=== PATIENT | female | born 1945 | race Two or more races ===

== ENCOUNTER 2025-03-21 22:19 | Inpatient (IN) | payer OTHER ==
[~2025-03-21] VITALS: Ht 152.4 cm; Wt 95.1 kg
[~2025-03-21 22:19] MED LIST: CARV6.2517 PO; CARV6.2551 PO; FURO20TA4 PO; HYDR12.59 PO; HYDR25TA5 PO; INS7030I SC; LOSA-535 PO; PANC2400 PO; POTA1TAB4 PO; SIMV20TA20 PO
[2025-03-21 22:40] VITALS: PULSE 62; RESP 20; O2SAT 93
--- NOTE | 2025-03-21 22:42 | ECG ---
[facility] Test Date: 2025-03-21 Test Time: 22:23:29 Pat Name: MARICHUY SHEPARD Department: [facility] ED Patient ID: [facility]-[id number] Room: 0221T Gender: F Volunteer Firefighter: tatiana : 1945 Requested By: EMERGENCY EMERGENCY Order Number: [id number] Reading MD: Christopher Ewing Measurements Intervals [place] Rate: 66 P: 76 OK: 177 QRS: 58 QRSD: 163 T: 260 QT: 448 QTc: 470 Interpretive Statements Sinus rhythm Left bundle branch block Electronically Signed On 03-23-2025 15:27:08 PST by Christopher Ewing Please click the below link to view image of tracing.
--- NOTE | 2025-03-21 22:43 | ED.PDOC ---
History of Present Illness HPI Comments 79 y/o obese F is BIBA for c/c of constipation and nausea w/o vomiting. Significant history for CAD, DM, HTN, MO, pancreatitis, noncancerous, right ovarian mass, cholecystectomy, back surgery, and recent hospital admission in January, for abdominal pain. No endorsed abdominal pain, diarrhea, fever, chills, or further acute symptoms. On scene blood glucose of 192. Chief Complaint: Abdominal Pain Time Seen by MD: 22:30 Reviewed Notes: Nurses Notes, Water Resource Specialist Notes, Medications, Allergies Allergies: Coded Allergies: Propoxyphene (Verified Allergy, Unknown, 02/07/18) Home Meds Reported Medications Hydrochlorothiazide (Hydrochlorothiazide) 12.5 Mg Cap, 12.5 MG PO DAILY for 30 Days, MG 02/08/18 Carvedilol (Coreg) 6.25 Mg Tab, 1 TAB PO BID, #180 TAB 1 Refill 02/08/18 Simvastatin (Simvastatin) 20 Mg Tab, 20 MG PO DAILY for 30 Days 02/08/18 Losartan Potassium (Losartan Potassium) 100 Mg Tab, 100 MG PO DAILY for 30 Days, MG 02/08/18 Information Source: Patient, Emergency Med Personnel Mode of Arrival: EMS Severity: Moderate Timing: Hours Duration: Since onset Prehospital treatment: 12 Lead EKG, Accucheck (192), Director Of Global Sales Past Medical History PAST MEDICAL HISTORY: CAD, DM, HTN, MO Past Medical History (Other): Pancreatitis Surgical History: Cholecystectomy Surgical History (Other): back surgery BUSINESS INVESTOR History: Other (noncancerous, right ovarian mass) Family History Family History: Unknown Social History Smoker: Non-Smoker Alcohol: Denies ETOH Use Drugs: Denies Drug Use Lives In: Home All Other Systems: Reviewed and Negative (Comprehensive systems review obtained and negative except for what is stated in the HPI.) Physical Exam General Appearance: No Apparent Distress, Obese HEENT: Normal ENT Inspection, Pharynx Normal, TMs Normal Neck: Full Range of Motion, Non-Tender, Normal, Normal Inspection Respiratory: Chest Non-Tender, Lungs Clear, No Accessory Muscle Use, No Respiratory Distress, Normal Breath Sounds Cardiovascular: No Edema, No JVD, No Murmur, No Gallop, Normal Peripheral Pulses, Regular Rate/Rhythm Breast Exam: Deferred Gastrointestinal: Abnormal Bowel Sounds (decreased ), Distended, No Organomegaly, Non Tender, No Pulsatile Mass, Soft Genitalia: Deferred Pelvic: Deferred Rectal: Deferred Extremities: No calf tenderness, Normal capillary refill, Normal inspection, Normal range of motion, Non-tender, No pedal edema Musculoskeletal : Apperance: Normal Neurologic: Alert, marketing account executive II-XII nml as Tested, No Motor Deficits, Normal Affect, Normal Mood, No Sensory Deficits Cerebellar Function: Normal Reflexes: Normal Skin: Dry, Normal Color, Warm Lymphatic: No Adenopathy Was a procedure done? Was a procedure done?: No Differential Dx Considerations may include: constipation, gastritis, gastroenteritis, bowel obstruction, viral, colitis, diverticulitis, kidney stones, GI malignancy, metastasis, pancreatitis X-Ray, Labs, Meds, VS Vital Signs Date Time Temp Pulse Resp B/P (MAP) Pulse Ox O2 Delivery O2 Flow Rate FiO2 03/21/25 22:53 97.8 76 18 150/68 98 97.8 03/21/25 22:23 66 Lab Test 03/21/25 22:47 03/21/25 22:42 Range/Units White Blood Count 10.3 4.4-10.8 10^3/uL Red Blood Count 4.44 4.0-5.20 10^6/uL Hemoglobin 13.6 12.2-16.2 g/dL Hematocrit 39.6 36.0-46.0 % Mean Corpuscular Volume 89.1 80.0-100.0 fL Mean Corpuscular Hemoglobin 30.5 28.0-32.0 pg Mean Corpuscular Hemoglobin Concent 34.3 32.0-36.0 g/dL Red Cell Distribution Width 14.1 11.8-14.3 % Platelet Count 145 140-450 10^3/uL Mean Platelet Volume 8.1 6.9-10.8 fL Neutrophils (%) (Auto) 84.3 H 37.0-80.0 % Lymphocytes (%) (Auto) 11.1 10.0-50.0 % Monocytes (%) (Auto) 3.7 0.0-12.0 % Eosinophils (%) (Auto) 0.8 0.0-7.0 % Basophils (%) (Auto) 0.1 0.0-2.0 % Neutrophils # (Auto) 8.6 1.6-8.6 10 ^3/uL Lymphocytes # (Auto) 1.1 0.4-5.4 10 ^3/uL Monocytes # (Auto) 0.4 0-1.3 10 ^3/uL Eosinophils # (Auto) 0.1 0-0.8 10 ^3/uL Basophils # (Auto) 0 0-0.2 10 ^3/uL Nucleated Red Blood Cells 0.1 % Sodium Level 132 L 136-145 mmol/L Potassium Level 3.8 3.5-5.1 mmol/L Chloride Level 97 L 98-107 mmol/L Carbon Dioxide Level 27 20-31 mmol/L Anion Gap 8 5-15 Blood Urea Nitrogen 10 9-23 mg/dL Creatinine 1.32 H 0.550-1.02 mg/dL Glomerular Filtration Rate Calc 41 >90 mL/min BUN/Creatinine Ratio 7.6 L 10.0-20.0 Serum Glucose 160 H 74-106 mg/dL Calcium Level 9.5 8.7-10.4 mg/dL Lipase 26 12-53 U/L Lactic Acid Level Pending Current Medications Medications (Trade) Dose Ordered Sig/Oz Route Start Time Stop Time Status Last Admin Sodium Chloride 1,000 ml @ 75 mls/hr [id number] ONCE IV 03/21/25 22:45 03/22/25 12:04 03/21/25 23:58 Time of 1ST Reevaluation: 23:00 Reevaluation 1ST: Unchanged Patient Education/Counseling: Diagnosis, Treatment, Prognosis, Need For Follow Up Family Education/Counseling: No Family Present Comments This is a patient who has a history of a nonspecific ovarian mass which is being observed by her doctor. She also has coronary artery disease and vascular disease. Presents with the abdominal pain and distention. She does not have an acute abdomen she is alert and oriented. Her vital signs are within normal limit however her CAT scan shows free air and pneumatosis consistent with possible ischemic bowel and perforation. Her labs are unremarkable. I will add a lactic acid I will administer light stroke volume fluids I will start broad- spectrum antibiotics keep the patient NPO consult surgery and the patient will be admitted for further evaluation of this potentially lethal condition. However again, she is stable and showing no signs of the stress. Because patient appears so comfortable and her clinical presentation is in rodriguez inconsistency with her CAT scan finding, Dr. Plaza who I consulted we will be happy to see this patient. In the meantime, patient will be admitted to under the hospitalist service. Additional Information Previous history reviewed: February 07, 2018 encounter for abdominal pain The following tests were ordered, and results were reviewed by me: Accucheck, CT abdomen/pelvis w/o contrast, EKG, BMP, CBC, UA, lipase Additional Information was gathered from interviewing the following independent historians: EMS personnel I reviewed and agreed with the following test results read by other providers: CT abdomen/pelvis w/o contrast I discussed treatment and results with medical personnel and: patient SEPSIS Sepsis Screen Physician Orders Urinalysis (03/21/25 22:36) Ct Ab Pel Wo Con-No Oral Or Iv (03/21/25 22:36) Sodium Chloride 0.9% (03/21/25 22:45) Accucheck (03/21/25 22:36) Piperacillin-Tazo 4.5gm (Zosyn 4.5gm/100 (03/22/25 01:00) Clindamycin 900mg Iv (Cleocin Iv) (03/22/25 01:00) Lactic Acid W/ Reflex Order (03/22/25 01:20) Vital Signs Date Time Temp Pulse Resp B/P (MAP) Pulse Ox O2 Delivery O2 Flow Rate FiO2 03/21/25 22:53 97.8 76 18 150/68 98 97.8 03/21/25 22:23 66 Laboratory Tests Test 03/21/25 22:42 03/21/25 22:47 Lactic Acid Level Pending White Blood Count 10.3 10^3/uL (4.4-10.8) Medications Medications Dose Ordered Sig/Oz Route Start Time Stop Time Status Last Admin Dose Admin Sodium Chloride 1,000 ml @ 75 mls/hr [id number] ONCE IV 03/21/25 22:45 03/22/25 12:04 03/21/25 23:58 Departure 1 Departure Time of Disposition: 01:24 Impression: Primary Impression: Bowel perforation Additional Impressions: Ischemic colitis Renal insufficiency Hyponatremia Disposition: ADMITTED INPATIENT Admit to: ICU Condition: Serious Discharged With: Self Critical Care Note Critical Care Time?: Yes (55 min-critical care time only) Critical care comment: Total critical care time: Approximately 55 minutes Due to a high probability of clinically significant, life threatening deterioration, the patient required my highest level of preparedness to intervene emergently and I personally spent this critical care time directly and personally managing the patient. This critical care time included obtaining a history; examining the patient; pulse oximetry; ordering and review of studies; arranging urgent treatment with development of a management plan; evaluation of patient's response to treatment; frequent reassessment; and, discussions with other providers. This critical care time was performed to assess and manage the high probability of imminent, life-threatening deterioration that could result in multi-organ failure. It was exclusive of separately billable procedures and treating other patients. Stability Stability form required: No Heart Score Heart Score: Heart Score Response (Comments) Value History N/A 0 EKG N/A 0 Age N/A 0 Risk Factors N/A 0 Troponin N/A 0 Total 0 I personally scribed for ZE NJ MD ([email or web address]) on 03/21/25 at 22:43. Electronically submitted by Abiodun Rahman ([email or web address]). ZE NJ MD Mar 21, 2025 22:43
[2025-03-21 22:59] LABS: Hematocrit 39.6 % (36.0-46.0); Hemoglobin 13.6 g/dL (12.2-16.2); Mean Corpuscular Hemoglobin 30.5 pg (28.0-32.0); Mean Corpuscular Volume 89.1 fL (80.0-100.0); Nucleated Red Blood Cells % 0.1 %
[2025-03-21 23:16] LABS: Potassium 3.8 mmol/L (3.5-5.1)
[2025-03-21 23:17] LABS: Anion Gap 8 (5-15); Calcium 9.5 mg/dL (8.7-10.4); Carbon Dioxide 27 mmol/L (20-31)
[2025-03-21 23:20] LABS: Chloride 97 mmol/L (98-107); Sodium 132 mmol/L (136-145)
[2025-03-21 23:22] LABS: BUN/Creatinine Ratio 7.6 (10.0-20.0); Blood Urea Nitrogen 10 mg/dL (9-23); Lipase 26 U/L (12-53)
[2025-03-21 23:23] LABS: Glucose 160 mg/dL (74-106)
[2025-03-21] MEDS: SODIUM CHLORIDE 0.9% 1,000 ML IV ONE (23:58)
--- NOTE | 2025-03-22 00:49 | DVH ---
EXAM: CT CT AB PEL WO CON-NO ORAL OR IV History: sbo. Pain. Comparison Study: None TECHNIQUE: Multidetector spiral CT of the abdomen was performed from lung bases to pubic symphysis. Imaging was performed without IV contrast. Axial, coronal and sagittal multiplanar reformats were obtained from the axial data set by the technologist. Radiation Dose : 1. Abdomen/Pelvis: CTDIvol 25.37 mGy, DLP 1471.68 mGy*cm. FINDINGS: Evaluation of solid organs is limited due to lack of intravenous contrast use. Lung Bases: No acute or significant lung base finding. Normal heart size. No pleural or pericardial effusion. Liver: Ill-defined hypodense lesion suspected in the right lobe of liver measuring approximately 7 cm. Gallbladder and Biliary Tree: Gallbladder is surgically absent. Spleen: Unremarkable Pancreas: The pancreas is grossly normal in appearance. Adrenal Glands: Unremarkable Kidneys: Kidneys are grossly normal without calculi or hydronephrosis. Bladder: Grossly unremarkable for degree of distention. Bowel: Diffuse air and fluid-filled distention of the small bowel with loops measuring up to 4.7 cm in diameter. Extensive pneumatosis with a large volume of free air throughout the abdomen and pelvis. Ascites: Absent Lymphadenopathy: No mesenteric, retroperitoneal or periportal lymphadenopathy. Abdominal Wall and Mesentery: Periumbilical hernia containing fat, air, and fluid. Vasculature: The visualized abdominal aorta is normal in size and caliber. Evaluation of abdominal and pelvic vessels is limited due to lack of intravenous contrast Pelvic Organs: Unremarkable Musculoskeletal: No aggressive focal bony lesions, acute fractures or dislocation. IMPRESSION: Limited assessment without contrast. Extensive pneumatosis with large volume of free air, concerning for ischemia with perforation. Surgical consultation recommended. Findings discussed with ER physician Dr. Murray at 12:45 AM on 03/22/2025. Radiation optimization: All CT scans at this facility use at least one of these dose optimization techniques: automated exposure control mA and/or kV adjustment per patient size (includes targeted exams where dose is matched to clinical indication) or iterative reconstruction.
[2025-03-22] MEDS: PIPERACILLIN-TAZO 4.5GM 100 ML IV ONE (01:00)
[2025-03-22] MEDS: CLINDAMYCIN 900MG IV 50 ML IV ONE (02:15)
[2025-03-22] MEDS: ONDANSETRON HCL 4 MG/2 ML VIAL IV ONE (02:15)
--- NOTE | 2025-03-22 04:11 | DVHINCON2 ---
Date of service: Mar 22, 2025 History of Present Illness 79-year-old morbidly obese female with a history of CHF and coronary artery disease admitted secondary to abdominal pain and nausea. Patient reports that she was recently hospitalized in January at a different hospital for similar abdominal pain. At the time she was told that she had possible bowel perforation and surgery was recommended at that time. However it resolved without surgery. Currently reports very minimal abdominal pain. Past Medical History Morbid obesity. CAD. History of [place]. CHF. Diabetes. Hypertension. Liver hemangioma. Right ovarian mass. Past Surgical History Open cholecystectomy Family History: Diabetes mellitus paternal grandmother Family History Noncontributory Social History No alcohol, tobacco, IV drug use Allergies: Coded Allergies: Propoxyphene (Verified Allergy, Unknown, 02/07/18) Home Meds Reported Medications Hydrochlorothiazide (Hydrochlorothiazide) 12.5 Mg Cap, 12.5 MG PO DAILY for 30 Days, MG 02/08/18 Carvedilol (Coreg) 6.25 Mg Tab, 1 TAB PO BID, #180 TAB 1 Refill 02/08/18 Simvastatin (Simvastatin) 20 Mg Tab, 20 MG PO DAILY for 30 Days 02/08/18 Losartan Potassium (Losartan Potassium) 100 Mg Tab, 100 MG PO DAILY for 30 Days, MG 02/08/18 Vital Signs Vital Signs Date Time Temp Pulse Resp B/P (MAP) Pulse Ox O2 Delivery O2 Flow Rate FiO2 03/21/25 22:53 97.8 76 18 150/68 98 97.8 Physical Exam GEN: Elderly female in no acute distress. Alert. HEENT: Normocephalic atraumatic. Moist mucous membranes. Anicteric sclerae. CV: RRR Respiratory: CTAB ABD: Obese abdomen with a right upper quadrant incisional scar from her previous cholecystectomy. Abdomen is soft. Very minimal epigastric tenderness to palpation without guarding or rebound. CT of the abdomen and pelvis: Extensive pneumatosis with large volume of free air concerning for ischemia or perforation. Labs/Diagnostic Data Labs Test 03/21/25 22:47 03/21/25 22:42 Range/Units White Blood Count 10.3 4.4-10.8 10^3/uL Red Blood Count 4.44 4.0-5.20 10^6/uL Hemoglobin 13.6 12.2-16.2 g/dL Hematocrit 39.6 36.0-46.0 % Mean Corpuscular Volume 89.1 80.0-100.0 fL Mean Corpuscular Hemoglobin 30.5 28.0-32.0 pg Mean Corpuscular Hemoglobin Concent 34.3 32.0-36.0 g/dL Red Cell Distribution Width 14.1 11.8-14.3 % Platelet Count 145 140-450 10^3/uL Mean Platelet Volume 8.1 6.9-10.8 fL Neutrophils (%) (Auto) 84.3 H 37.0-80.0 % Lymphocytes (%) (Auto) 11.1 10.0-50.0 % Monocytes (%) (Auto) 3.7 0.0-12.0 % Eosinophils (%) (Auto) 0.8 0.0-7.0 % Basophils (%) (Auto) 0.1 0.0-2.0 % Neutrophils # (Auto) 8.6 1.6-8.6 10 ^3/uL Lymphocytes # (Auto) 1.1 0.4-5.4 10 ^3/uL Monocytes # (Auto) 0.4 0-1.3 10 ^3/uL Eosinophils # (Auto) 0.1 0-0.8 10 ^3/uL Basophils # (Auto) 0 0-0.2 10 ^3/uL Nucleated Red Blood Cells 0.1 % Sodium Level 132 L 136-145 mmol/L Potassium Level 3.8 3.5-5.1 mmol/L Chloride Level 97 L 98-107 mmol/L Carbon Dioxide Level 27 20-31 mmol/L Anion Gap 8 5-15 Blood Urea Nitrogen 10 9-23 mg/dL Creatinine 1.32 H 0.550-1.02 mg/dL Glomerular Filtration Rate Calc 41 >90 mL/min BUN/Creatinine Ratio 7.6 L 10.0-20.0 Serum Glucose 160 H 74-106 mg/dL Calcium Level 9.5 8.7-10.4 mg/dL Lipase 26 12-53 U/L Lactic Acid Level 1.0 0.4-2.0 mmol/L Assessment 1. Likely perforated viscus with possible ischemic bowel however clinically stable Plan/Recommendation 1. Recommended NG tube placement. Her at this time patient refuses. I explained that without NG tube, her clinical situation may get worse to a point were may be life-threatening. She expressed verbal understanding were still refused at this time. 2. I have explained two options going forward: 1st being surgical intervention with a expiratory laparotomy with the risks and benefits. The 2nd being conservative treatment with NG tube decompression, IV antibiotics and fluid resuscitation. The patient in the daughter we will think about it before making a final decision however they are leaning more towards conservative treatment. They also expressed their desire to be transferred to [facility] where she gets her medical care. Plan discussed with: Patient, Daughter MAME GUAN MD Mar 22, 2025 04:11
[2025-03-22] MEDS: SODIUM CHLORIDE 0.9% 1,000 ML IV SCH ×2 (04:15→12:51)
[2025-03-22 05:57] LABS: INR 1.06 (0.9-1.15); Partial Thromboplastin Time 25.2 SEC (24.5-34.5); Prothrombin Time 11.2 sec (9.3-11.8)
[2025-03-22] MEDS: PIPERACILLIN-TAZOB 3.375GM 100 ML IV SCH (06:58)
[2025-03-22 09:12] LABS: Triglycerides 60 mg/dL (< 150)
[2025-03-22 09:15] LABS: Cholesterol 67 mg/dL (< 200)
[2025-03-22 09:29] LABS: HDL Cholesterol 33 mg/dL (40-59)
--- NOTE | 2025-03-22 09:49 | DVH ---
INDICATION: Pre-op, pain TECHNIQUE: Frontal view of the chest. COMPARISON: None FINDINGS: NG tube in stomach . The heart and mediastinal contours are grossly unremarkable. There is no evidence of pleural disease. The lungs are clear. The bony structures of the chest are intact without fracture. IMPRESSION: 1. Extensive pneumatosis with large volume of free air, concerning for ischemia with perforation
[2025-03-22 10:16] LABS: Urine Protein, UAD Negative (Negative)
[2025-03-22] MEDS ORDERED: HYDROcodone-ACET 5/325MG TAB PO PRN (10:30)
[2025-03-22] MEDS ORDERED: DEXTROSE (50%) 50ML SYRG IV PRN (10:30)
--- NOTE | 2025-03-22 10:31 | DVHINCON2 ---
Date Seen: Mar 22, 2025 Referring Physician MD Angelica Reason for Consultation Cardiac risk stratification History of Present Illness This is an 79-year-old female who presented to the emergency room via EMS with a chief complaint of abdominal pain for three days. The patient complains of abd ominal pain associated with nausea, vomiting, and constipation. She was evaluated by the surgical team and diagnosed with a likely perforated viscus with possible ischemic bowel pending possible surgical intervention. Cardiology consulted for cardiac risk stratification prior to procedure. The patient denies any active chest pain, SOB, palpitations, diaphoresis, or dizziness. She uses a walker for ambulation denying exertional angina or dyspnea on exertion. Reports she is not able to go up and down flights of stairs as she needs assistance by a walker. She underwent a 12 lead electrocardiogram revealing a sinus rhythm with an associated left bundle branch block and nonspecific T-wave inversion to inferolateral leads. Follows up with the primary dragline engineer at [facility] with latest appointment completed a month ago. Significant medical history includes congestive heart failure with mildly reduced EF at 45- 50% (2018), hypertension, dyslipidemia, insulin-dependent diabetes mellitus, liver hemangioma, right ovarian mass, and morbid obesity. Denies a history of coronary artery disease or stent placement in the past. Past Medical History Past medical history reviewed. No other significant than mentioned above. Past Surgical History Cholecystectomy Facial tumor removal Back surgery Family History: Diabetes mellitus paternal grandmother Family History Family history reviewed. Social History Denies the use of illicit drugs, alcohol, or tobacco use. Allergies: Coded Allergies: Propoxyphene (Verified Allergy, Unknown, 02/07/18) Home Meds Reported Medications Hydrochlorothiazide (Hydrochlorothiazide) 12.5 Mg Cap, 12.5 MG PO DAILY for 30 Days, MG 02/08/18 Carvedilol (Coreg) 6.25 Mg Tab, 1 TAB PO BID, #180 TAB 1 Refill 02/08/18 Simvastatin (Simvastatin) 20 Mg Tab, 20 MG PO DAILY for 30 Days 02/08/18 Losartan Potassium (Losartan Potassium) 100 Mg Tab, 100 MG PO DAILY for 30 Days, MG 02/08/18 Home Meds Home medications reviewed. Current Medications Current Medications Medications (Trade) Dose Ordered Sig/Oz Route PRN Reason Start Time Stop Time Status Last Admin Piperacillin Sod/ Tazobactam Sod 100 ml @ 25 mls/hr Q8HR IV 03/22/25 06:00 03/22/25 06:58 Sodium Chloride 1,000 ml @ 100 mls/hr Q10H IV 03/22/25 04:15 03/22/25 04:51 DC 03/22/25 04:15 Review of Systems Constitutional: No symptom reported Ears, Nose, & Throat: No symptom reported Eyes: No symptom reported Neurological: No symptoms reported Pulmonary/Respiratory: No symptom reported Cardiovascular: No symptom reported Gastrointestinal: Abdominal pain, N/V/constipation Genitourinary: No symptom reported Musculoskeletal: No symptom reported Skin: No symptom reported Psychiatric: No symptom reported Endocrine: No symptom reported Hemotologic/Lymphatic: No symptom reported Vital Signs Vital Signs Date Time Temp Pulse Resp B/P (MAP) Pulse Ox O2 Delivery O2 Flow Rate FiO2 03/22/25 08:00 Room Air* 0 21 03/22/25 08:00 70 21 121/49 (73) 89 03/21/25 23:00 98.7 98.7 Physical Exam General Appearance: Cooperative. Well developed. Morbidly obese. In moderate acute distress Head Exam: Normal inspection Neck Exam: Normal inspection. Non-tender. Normal alignment Pulmonary/Respiratory: Chest non-tender. Clear bilateral breath sounds Cardiovascular/Chest: Regular rate and rhythm. S1, S2. Sinus rhythm with associated LBBB. No murmurs. No JVD. Peripheral Pulses: 2+ Radial (R). 2+ Radial (L). 2+ Pedal (R). 2+ Pedal (L) Abdominal Exam: Tender Ankle Exam: Negative ankle edema Lower extremities: Negative lower extremity edema Neuro/Mental Status: A&O x4. Coherent Thoughts/Psych: Normal thought pattern. Appropriate mood and affect. Good judgement and insight Appearance: In moderate acute distress Skin Exam: Normal inspection. Normal color. Warm. Dry Labs/Diagnostic Data Labs Test 03/22/25 09:55 03/22/25 05:07 03/21/25 22:47 03/21/25 22:42 Range/Units Prothrombin Time 11.2 9.3-11.8 sec Prothrombin Time INR 1.06 0.9-1.15 Activated Partial Thromboplast Time 25.2 24.5-34.5 SEC Hemoglobin A1c 7.5 H <5.7 % A1C Triglycerides Level 60 < 150 mg/dL Cholesterol Level 67 < 200 mg/dL LDL Cholesterol 21 < 100 mg/dL HDL Cholesterol 33 L 40-59 mg/dL Thyroid Stimulating Hormone (TSH) 2.18 0.55-4.78 uIU/mL White Blood Count 10.3 4.4-10.8 10^3/uL Red Blood Count 4.44 4.0-5.20 10^6/uL Hemoglobin 13.6 12.2-16.2 g/dL Hematocrit 39.6 36.0-46.0 % Mean Corpuscular Volume 89.1 80.0-100.0 fL Mean Corpuscular Hemoglobin 30.5 28.0-32.0 pg Mean Corpuscular Hemoglobin Concent 34.3 32.0-36.0 g/dL Red Cell Distribution Width 14.1 11.8-14.3 % Platelet Count 145 140-450 10^3/uL Mean Platelet Volume 8.1 6.9-10.8 fL Neutrophils (%) (Auto) 84.3 H 37.0-80.0 % Lymphocytes (%) (Auto) 11.1 10.0-50.0 % Monocytes (%) (Auto) 3.7 0.0-12.0 % Eosinophils (%) (Auto) 0.8 0.0-7.0 % Basophils (%) (Auto) 0.1 0.0-2.0 % Neutrophils # (Auto) 8.6 1.6-8.6 10 ^3/uL Lymphocytes # (Auto) 1.1 0.4-5.4 10 ^3/uL Monocytes # (Auto) 0.4 0-1.3 10 ^3/uL Eosinophils # (Auto) 0.1 0-0.8 10 ^3/uL Basophils # (Auto) 0 0-0.2 10 ^3/uL Nucleated Red Blood Cells 0.1 % Sodium Level 132 L 136-145 mmol/L Potassium Level 3.8 3.5-5.1 mmol/L Chloride Level 97 L 98-107 mmol/L Carbon Dioxide Level 27 20-31 mmol/L Anion Gap 8 5-15 Blood Urea Nitrogen 10 9-23 mg/dL Creatinine 1.32 H 0.550-1.02 mg/dL Glomerular Filtration Rate Calc 41 >90 mL/min BUN/Creatinine Ratio 7.6 L 10.0-20.0 Serum Glucose 160 H 74-106 mg/dL Calcium Level 9.5 8.7-10.4 mg/dL Lipase 26 12-53 U/L Lactic Acid Level 1.0 0.4-2.0 mmol/L Assessment Preprocedural cardiovascular examination Likely bowel ischemia with perforation Chronic compensated HFmrEF Hypertension Dyslipidemia Insulin-dependent diabetes mellitus (HgbA1C 7.5%) Morbid obesity Plan/Recommendation (Dr. Hein) Revised cardiac risk index (Cayden criteria): 10% risk of , CA, or cardiac arrest. Patient has no underlying history of coronary artery disease and has an fair functional capacity with METS>4 via walker. She presents with chronic compensated HFmrEF. There is no indication for ischemic work-up at this time. Per Cardiology standpoint, the patient is at a moderate-risk for moderate-risk surgery. There is no additional cardiac workup indicated prior to surgery. Thank you for allowing us to care for this patient. Please call with any questions or concerns. This medical document was created using an electronic medical record system with voice recognition software and computerized dictation system. Although this document has been carefully reviewed, there might still be some phonetic and typographical errors. Occasional wrong-word or ``sound-alike substitutions may have occurred due to the inherent limitations of voice recognition software. These areas are purely typographical due to imperfections of the software programs and do not reflect any compromise in the patient's medical care. Please read the chart carefully and recognize, using context, where these substitutions have occurred. Plan discussed with: Patient, Other NYHA Physical activity limitations: NA Date of Service: Mar 22, 2025 Billing Provider: MIRLANDE VERONICA Cardiology Common Codes: [id number] INP/OBS CARE (High) MIRLANDE VERONICA Mar 22, 2025 10:31
[2025-03-22] MEDS: MORPHINE SULFATE INJ 2 MG/ml SYRG IV PRN (10:59)
[2025-03-22] MEDS: MORPHINE SULFATE 4 MG/ML SYR/VIAL ONE (11:00)
[2025-03-22] MEDS: ONDANSETRON HCL 4 MG/2 ML VIAL IV PRN (11:02)
--- NOTE | 2025-03-22 11:28 | DVHSR ---
APPROVED REPORT EXAM: Two-dimensional and M-mode echocardiogram with Doppler and color Doppler. Blood Pressure: 100/43 mmHg INDICATION Pre-Op RISK FACTORS Obesity: Height: 5'0", Weight: 240 DIMENSIONS LVDd 5.4 (3.8-5.7cm) LA (2D) 4.0 (1.9-4.0cm) Aortic Root 3.7 (2.0-3.7cm) LVDs 4.9 (2.5-4.0cm) LA (MM) (1.9-4.0cm) Aortic Cusp Exc 1.9 (1.5-2.0cm) EF (%) 20.0 (55-70%) Rt. Atrium 4.1 (1.9-4.0cm) Asc. Aorta cm IVSd 1.2 (0.7-1.1cm) RV (D) (1.8-2.4cm) PWd 1.1 (0.7-1.1cm) Mitral Valve Mitral Mitral Stenosis E wave 0.59m/s MV Mean GR. mmHg A wave 1.26m/s MV Peak GR. mmHg E/A ratio 0.5 2D MVA cm2 DECEL Time 149ms PRESS 1/2 Time ms Aortic Valve Aortic Valve Aortic Stenosis V1 0.71m/s AO Mean GR. 4mmHg V2 1.37m/s AO Peak GR. 7mmHg LVOT Diameter 2.2 (1.8-2.4cm) Doppler DAYNA 1.97cm2 Pulmonic Valve V2 0.84m/s Tricuspid Valve TR Velocity 2.51m/s RVSP 33mmHg Other Information Technically limited study due to body habitus, patient position. Conclusion 1. Left ventricle: The cavity size is mildly enlarged. There is mild concentric left ventricular hypertrophy. Systolic function is severely reduced. The ejection fraction is 20-25%. Grade I diastolic dysfunction. 2. Right ventricle: Systolic function is reduced. Estimated RVSP33 mm Hg 3. Aortic valve: The valve is tricuspid. There is no stenosis. There is no regurgitation. 4. Mitral valve: there is trace regurgitation. There is no stenosis. 5. Tricuspid valve : There is mild regurgitation. There is no stenosis. 6. Pulmonic valve there is trace regurgitation. 7. Aortic root and thoracic ascending aorta are normal in size. 8. Pericardium: A trivial pericardial effusion is identified.
[2025-03-22 11:30] VITALS: PULSE 62; RESP 24; O2SAT 94
--- NOTE | 2025-03-22 11:42 | DVHHP2 ---
History of Present Illness Reason for Visit: Bowel perforation History of Present Illness The patient is a 79-year-old female with complaint of Coronary artery disease, diabetes mellitus, [place], pancreatitis, and hypertension who presented to [facility] ED with complaint of constipation and intractable nausea. Patiirena tidwell was seen and evaluated in the ED, laboratory data shows WBC 10.3, platelets 145, sodium 132, potassium 3.8, BUN 10, creatinine 1.32, GFR 41, glucose 160, hemoglobin A1c 7.5, calcium 9.5, lipase 26, TSH 2.18, blood pressure 121/49, heart rate 70, temperature 98.7 F, O2 saturation 93% on oxygen. Abdomen/pelvis CT revealing extensive pneumatosis with large volume of free air, concerning for ischemia with perforation. Chest x-ray revealing extensive pneumatosis with large volume of free air, concerning for ischemia with perforation. Please see medication orders section in the computer. On my assessment, patient denied chest pain, no headache, dizziness, diaphoresis, currently on oxygen, no diarrhea, nausea, vomiting, fever, no chills. Patient was admitted for further evaluation and medical management. Past Medical History CAD, DM, HTN, [place], Pancreatitis Past Surgical History Cholecystectomy, Back surgery Family History Reviewed, noncontributory to the management of this case. Past Social History The patient lives at home, denies smoking, alcohol or illicit drugs abuse. Review of Systems Constitutional: Yes: Weakness; No: Fever, Chills, Sweats, Malaise, Other Eyes: No: Pain, Vision change, Conjunctivae inflammation, Eyelid inflammation, Other, Redness ENT: No: Ear pain, Ear discharge, Nose pain, Nose discharge, Nose congestion, Mouth pain, Mouth swelling, Throat pain, Throat swelling, Other Respiratory: Shortness of breath; No: Cough, Dry, SOB with excertion, Wheezing, Hemoptysis, Pleuritic Pain, Sputum, Wheezing, Other Cardiovascular: No: Chest Pain, Palpitations, Orthopnea, Paroxysmal Noc. Dyspnea, Edema, Lt Headedness, Other Gastrointestinal: Abdominal Pain; No: Nausea, Vomiting, Diarrhea, Constipation, Melena, Hematochezia, Other Genitourinary: No Dysuria, No Frequency, No Incontinence, No Hematuria, No Retention, No Other Musculoskeletal: No: other, neck pain, shoulder pain, arm pain, back pain, hand pain, leg pain, foot pain Skin: No: Rash, Lesions, Jaundice, Bruising, Other Neurological: No: Weakness, Numbness, Incoordination, Change in speech, Confusion, Seizures, Other Allergies: Coded Allergies: Propoxyphene (Verified Allergy, Unknown, 02/07/18) Medications Current Medications Medications Dose Ordered Sig/Oz Route Start Time Stop Time Status Last Admin Dose Admin Piperacillin Sod/ Tazobactam Sod 100 ml @ 25 mls/hr Q8HR IV 03/22/25 06:00 03/22/25 06:58 25 MLS/HR Atorvastatin Calcium 20 mg HS PO 03/22/25 22:00 Losartan Potassium 25 mg DAILY PO 03/23/25 10:00 Diagnostic Test (Pha) 1 strip Q6HR 03/22/25 12:00 Insulin Human Regular Q6HR SC 03/22/25 12:00 Dextrose 50 ml UD PRN IV 03/22/25 10:30 Sodium Chloride 1,000 ml @ 60 mls/hr [id number] IV 03/22/25 10:30 Acetaminophen/ Hydrocodone Bitart 1 tab Q4HP PRN PO 03/22/25 10:30 Ondansetron HCl 4 mg Q4HP PRN IV 03/22/25 10:30 03/22/25 11:02 4 MG Acetaminophen 650 mg Q6HP PRN PO 03/22/25 10:30 Morphine Sulfate 2 mg Q4HPRN PRN IV 03/22/25 10:30 03/22/25 10:59 2 MG Exam Vital Signs Vital Signs Date Time Temp Pulse Resp B/P (MAP) Pulse Ox O2 Delivery O2 Flow Rate FiO2 03/22/25 10:59 68 16 121/40 03/22/25 10:00 92 03/22/25 08:00 Room Air* 0 21 03/21/25 23:00 98.7 98.7 General Appearance: Alert, Oriented X3, Cooperative, No acute distress HEENT: Atraumatic, PERRLA, EOMI, Mucous membr. moist/pink Respiratory: Normal air movement Cardiovascular: Regular rate, Normal S1, Normal S2, No murmurs Abdominal: Normal bowel sounds, Soft, No hepatospenomegaly, No masses, Other (Reports tenderness) Extremities: No clubbing, No cyanosis, No edema, Normal pulses, No tenderness/swelling Skin: No rashes, No significant lesion Neuro: Normal speech, Normal tone, Sensation intact, Cranial nerves 3-12 NL, Reflexes 2+, Other (Generalized weakness) Psych/Mental Status: Mental status NL, Mood NL Labs/Xrays Labs Test 03/22/25 09:55 03/22/25 05:07 03/21/25 22:47 03/21/25 22:42 Range/Units Urine Color Colorless Yellow Urine Clarity Clear Clear Urine pH 5.5 5.0-9.0 Urine Specific [place] 1.007 1.001-1.035 Urine Protein Negative Negative Urine Ketones Negative Negative Urine Blood Negative Negative /uL Urine Nitrite Negative Negative Urine Bilirubin Negative Negative Urine Urobilinogen Normal Negative mg/dL Urine Leukocyte Esterase Negative Negative /uL Urine RBC <1 0 - 4 /hpf Urine Microscopic WBC 1 0-5 /HPF Urine Squamous Epithelial Cells Few <5 /hpf Urine Bacteria Few H None Seen /hpf Urine Glucose Normal Normal mg/dL Prothrombin Time 11.2 9.3-11.8 sec Prothrombin Time INR 1.06 0.9-1.15 Activated Partial Thromboplast Time 25.2 24.5-34.5 SEC Hemoglobin A1c 7.5 H <5.7 % A1C B-Type Natriuretic Peptide 121.18 0-100 pg/mL Triglycerides Level 60 < 150 mg/dL Cholesterol Level 67 < 200 mg/dL LDL Cholesterol 21 < 100 mg/dL HDL Cholesterol 33 L 40-59 mg/dL Thyroid Stimulating Hormone (TSH) 2.18 0.55-4.78 uIU/mL White Blood Count 10.3 4.4-10.8 10^3/uL Red Blood Count 4.44 4.0-5.20 10^6/uL Hemoglobin 13.6 12.2-16.2 g/dL Hematocrit 39.6 36.0-46.0 % Mean Corpuscular Volume 89.1 80.0-100.0 fL Mean Corpuscular Hemoglobin 30.5 28.0-32.0 pg Mean Corpuscular Hemoglobin Concent 34.3 32.0-36.0 g/dL Red Cell Distribution Width 14.1 11.8-14.3 % Platelet Count 145 140-450 10^3/uL Mean Platelet Volume 8.1 6.9-10.8 fL Neutrophils (%) (Auto) 84.3 H 37.0-80.0 % Lymphocytes (%) (Auto) 11.1 10.0-50.0 % Monocytes (%) (Auto) 3.7 0.0-12.0 % Eosinophils (%) (Auto) 0.8 0.0-7.0 % Basophils (%) (Auto) 0.1 0.0-2.0 % Neutrophils # (Auto) 8.6 1.6-8.6 10 ^3/uL Lymphocytes # (Auto) 1.1 0.4-5.4 10 ^3/uL Monocytes # (Auto) 0.4 0-1.3 10 ^3/uL Eosinophils # (Auto) 0.1 0-0.8 10 ^3/uL Basophils # (Auto) 0 0-0.2 10 ^3/uL Nucleated Red Blood Cells 0.1 % Sodium Level 132 L 136-145 mmol/L Potassium Level 3.8 3.5-5.1 mmol/L Chloride Level 97 L 98-107 mmol/L Carbon Dioxide Level 27 20-31 mmol/L Anion Gap 8 5-15 Blood Urea Nitrogen 10 9-23 mg/dL Creatinine 1.32 H 0.550-1.02 mg/dL Glomerular Filtration Rate Calc 41 >90 mL/min BUN/Creatinine Ratio 7.6 L 10.0-20.0 Serum Glucose 160 H 74-106 mg/dL Calcium Level 9.5 8.7-10.4 mg/dL Lipase 26 12-53 U/L Lactic Acid Level 1.0 0.4-2.0 mmol/L PATIENT: MARICHUY SHEPARD ACCT: [id number] UNIT: [id number] : 1945 LOC: ER ROOM / BED: / AGE / SEX: 79 / F ADM STATUS: REG ER SERVICE 35 ORDERING PHYSICIAN: ZE NJ MD PROCEDURE(s): ABPL - CT AB PEL WO CON-NO ORAL OR IV REASON: sbo ORDER NUMBER(s): [id number], ACCESSION NUMBER(s): [id number] EXAM: CT CT AB PEL WO CON-NO ORAL OR IV History: sbo. Pain. Comparison Study: None TECHNIQUE: Multidetector spiral CT of the abdomen was performed from lung bases to pubic symphysis. Imaging was performed without IV contrast. Axial, coronal and sagittal multiplanar reformats were obtained from the axial data set by the technologist. Radiation Dose: 1. Abdomen/Pelvis: CTDIvol 25.37 mGy, DLP 1471.68 mGy*cm. FINDINGS: Evaluation of solid organs is limited due to lack of intravenous contrast use. Lung Bases: No acute or significant lung base finding. Normal heart size. No pleural or pericardial effusion. Liver: Ill-defined hypodense lesion suspected in the right lobe of liver measuring approximately 7 cm. Gallbladder and Biliary Tree: Gallbladder is surgically absent. Spleen: Unremarkable Pancreas: The pancreas is grossly normal in appearance. Adrenal Glands: Unremarkable Kidneys: Kidneys are grossly normal without calculi or hydronephrosis. Bladder: Grossly unremarkable for degree of distention. Bowel: Diffuse air and fluid-filled distention of the small bowel with loops measuring up to 4.7 cm in diameter. Extensive pneumatosis with a large volume of free air throughout the abdomen and pelvis. Ascites: Absent Lymphadenopathy: No mesenteric, retroperitoneal or periportal lymphadenopathy. Abdominal Wall and Mesentery: Periumbilical hernia containing fat, air, and fluid. Vasculature: The visualized abdominal aorta is normal in size and caliber. Evaluation of abdominal and pelvic vessels is limited due to lack of intravenous contrast Pelvic Organs: Unremarkable Musculoskeletal: No aggressive focal bony lesions, acute fractures or dislocati on. IMPRESSION: Limited assessment without contrast. Extensive pneumatosis with large volume of free air, concerning for ischemia with perforation. Surgical consultation recommended. Findings discussed with ER physician Dr. Nj at 12:45 AM on 03/22/2025. ORDERING PHYSICIAN: MIRLANDE VERONICA PROCEDURE(s): CXRP - CHEST PORTABLE REASON: Pre-op ORDER NUMBER(s): [id number], ACCESSION NUMBER(s): [id number] INDICATION: Pre-op, pain TECHNIQUE: Frontal view of the chest. COMPARISON: None FINDINGS: NG tube in stomach. The heart and mediastinal contours are grossly unremarkable. There is no evidence of pleural disease. The lungs are clear. The bony structures of the chest are intact without fracture. IMPRESSION: 1. Extensive pneumatosis with large volume of free air, concerning for ischemia with perforation SEPSIS Sepsis Screen Date sepsis recognized/suspect: Mar 22, 2025 Time Sepsis recognized/suspect: 0800 Recent Procedure: No On Antibiotic Therapy: Yes Respiratory Rate >20: No Heart Rate >90: No Temp<36 C (96.8 F) or >38.3 C: No SBP <90 or MAP <65 mmHG: No New Acute Mental Status Change: No Is the patient on CPAP, BIPAP,: No Physician Orders Piperacillin-Tazob 3.375gm (Zosyn 3.375g (03/22/25 06:00) * Cardiology Consult (03/22/25 04:11) Echo 2d Mode Cardiac Dop (03/22/25 08:54) Chest Portable (03/22/25 08:56) Atorvastatin (Lipitor) (03/22/25 22:00) Losartan Tablet (Cozaar Tablet) (03/23/25 10:00) * Surgical Consult (03/22/25 ) Glucose Blood (Accu-Chek Comfort Curve T (03/22/25 12:00) Insulin R (Human) (Insulin R) (03/22/25 12:00) Dextrose 50% Syringe (03/22/25 10:30) Allergies (03/22/25 10:23) Code Status (03/22/25 10:23) Sodium Chloride 0.9% (03/22/25 10:30) Oxygen Per Hour (03/22/25 10:23) Hydrocodone-Acet 5/325mg Tab ([facility] 5/32 (03/22/25 10:30) Ondansetron Hcl (Zofran) (03/22/25 10:30) Complete Blood Count (03/23/25 04:00) Comprehensive Metabolic Panel (03/23/25 04:00) Condition: Serious (03/22/25 10:23) Acetaminophen Tablet (Tylenol Tablet) (03/22/25 10:30) Bedrest With Bathroom Privileg (03/22/25 10:23) Morphine Sulfate Injection (03/22/25 10:30) Sequential Compression Device (03/22/25 ) Admit (03/22/25 11:40) Nitroglycerin Sublingual (Ntrostat Subli (03/22/25 11:45) Morphine Sulfate Injection (03/22/25 11:45) Stat Ekg For Chest Pain (03/22/25 11:40) Notify Md Of Changes From Base (03/22/25 11:40) Cutting Machine Tender For 24 Hours (03/22/25 11:40) Emergency Dysrhythmia Protocol (03/22/25 11:40) Rhythm Strips Once Every Shift (03/22/25 11:40) Oxygen By Nasal Cannula (03/22/25 11:40) Vital Signs Date Time Temp Pulse Resp B/P (MAP) Pulse Ox O2 Delivery O2 Flow Rate FiO2 03/22/25 10:59 68 16 121/40 03/22/25 10:00 69 19 129/41 (70) 92 03/22/25 08:00 Room Air* 0 21 03/22/25 08:00 70 21 121/49 (73) 89 03/22/25 04:00 61 03/22/25 04:00 61 21 100/43 (62) 93 Medications Medications Dose Ordered Sig/Oz Route Start Time Stop Time Status Last Admin Dose Admin Clindamycin Phosphate 50 ml @ 50 mls/hr ONCE ONCE IV 03/22/25 01:00 03/22/25 01:59 DC 03/22/25 02:15 50 MLS/HR Morphine Sulfate 2 mg Q4HPRN PRN IV 03/22/25 10:30 03/22/25 10:59 2 MG Ondansetron HCl 4 mg Q4HP PRN IV 03/22/25 10:30 03/22/25 11:02 4 MG Piperacillin Sod/ Tazobactam Sod 100 ml @ 25 mls/hr Q8HR IV 03/22/25 06:00 03/22/25 06:58 25 MLS/HR Piperacillin Sod/ Tazobactam Sod 100 ml @ 100 mls/hr ONCE ONCE IV 03/22/25 01:00 03/22/25 01:59 DC 03/22/25 01:00 100 MLS/HR Sodium Chloride 1,000 ml @ 100 mls/hr Q10H IV 03/22/25 04:15 03/22/25 04:51 DC 03/22/25 04:15 100 MLS/HR Assessment/Plan Assessment/Plan Bowel perforation Hyponatremia Renal insufficiency Ischemic colitis Generalized weakness Plan 1. Admit to telemetry unit 2. Breathing treatment 3. Pain control management 4. IV antibiotic management 5. Management of fluids and electrolytes 6. Consultation for surgery 7. Diagnostic test abdomen/pelvis CT 8. DVT prophylaxis-on SCDs 9. Repeat labs CBC, CMP in a.m. 10. Home medication reviewed and reconciled 11. Continue with current medical management 12. Treatment plan discussed with patient and RN. Patient verbalized understanding. Plan discussed with: Patient, Other (RN) My Orders Orders - KIESHA RICKETTS DNP Procedure Category Date Status Time Atorvastatin (Lipitor) PHA 03/22/25 In Process 22:00 Losartan Tablet PHA 03/23/25 In Process (Cozaar Tablet) 10:00 * Surgical Consult CONS 03/22/25 Transmitted Glucose Blood PHA 03/22/25 In Process (Accu-Chek Comfort 12:00 Insulin R (Human) PHA 03/22/25 In Process (Insulin R) 12:00 Dextrose 50% Syringe PHA 03/22/25 In Process 10:30 Allergies ELBA 03/22/25 In Process 10:23 Code Status CODE 03/22/25 Transmitted 10:23 Sodium Chloride 0.9% PHA 03/22/25 In Process 10:30 Oxygen Per Hour RT 03/22/25 Transmitted 10:23 Hydrocodone-Acet PHA 03/22/25 In Process 5/325mg Tab ([facility] 10:30 Ondansetron Hcl PHA 03/22/25 In Process (Zofran) 10:30 Complete Blood Count LAB 03/23/25 Verified 04:00 Comprehensive LAB 03/23/25 Verified Metabolic Panel 04:00 Condition: Serious ELBA 03/22/25 In Process 10:23 Acetaminophen Tablet PHA 03/22/25 In Process (Tylenol Tablet) 10:30 Bedrest With Bathroom ELBA 03/22/25 In Process Privileg 10:23 Morphine Sulfate PHA 03/22/25 In Process Injection 10:30 Sequential ELBA 03/22/25 In Process Compression Device Admit ADMIT 03/22/25 Verified 11:40 Nitroglycerin PHA 03/22/25 Verified Sublingual (Ntrostat 11:45 Morphine Sulfate PHA 03/22/25 Verified Injection 11:45 Stat Ekg For Chest [facility] 03/22/25 Verified Pain 11:40 Notify Md Of Changes [facility] 03/22/25 Verified From Base 11:40 Cutting Machine Tender For [facility] 03/22/25 Verified 24 Hours 11:40 Emergency Dysrhythmia [facility] 03/22/25 Verified Protocol 11:40 Rhythm Strips Once [facility] 03/22/25 Verified Every Shift 11:40 Oxygen By Nasal RT 03/22/25 Verified Cannula 11:40 Problem List: (1) Bowel perforation (2) Hyponatremia (3) Renal insufficiency (4) Ischemic colitis (5) Generalized weakness Date of Service: Mar 22, 2025 Billing Provider: KIESHA RICKETTS DNP Common Visit Codes: [id number] INP/OBS CARE (HIGH) KIESHA RICKETTS DNP Mar 22, 2025 11:42
[2025-03-22] MEDS ORDERED: MORPHINE SULFATE INJ 2 MG/ml SYRG IV PRN (11:45)
[2025-03-22] MEDS ORDERED: NITROGLYCERIN 0.4 MG SL TAB SL PRN (11:45)
[2025-03-22] MEDS: ACCU-CHEK COMFORT CURVE STRIP VI SCH (12:00)
[2025-03-22] MEDS: InsuLIN REG 1unit/0.01ml Soln (100units/ml) SC SCH (12:41)
[2025-03-22 14:03] LABS: Hematocrit 36.7 % (36.0-46.0); Hemoglobin 12.6 g/dL (12.2-16.2); Mean Corpuscular Hemoglobin 30.6 pg (28.0-32.0); Mean Corpuscular Volume 89.3 fL (80.0-100.0); Nucleated Red Blood Cells % 0.1 %
[2025-03-22 14:07] LABS: Chloride 101 mmol/L (98-107); Potassium 4.0 mmol/L (3.5-5.1)
[2025-03-22 14:08] LABS: Anion Gap 8 (5-15); Calcium 9.0 mg/dL (8.7-10.4); Carbon Dioxide 26 mmol/L (20-31)
[2025-03-22 14:13] LABS: BUN/Creatinine Ratio 5.5 (10.0-20.0)
[2025-03-22 14:21] LABS: Blood Urea Nitrogen 7 mg/dL (9-23); Glucose 202 mg/dL (74-106); Sodium 135 mmol/L (136-145)
[2025-03-22 15:13] VITALS: BP 135/67; PULSE 60; RESP 16; O2SAT 99
[2025-03-22 16:45] VITALS: BP 135/67; PULSE 82; RESP 20; TEMP 98.5; O2SAT 93
[2025-03-22 20:00] VITALS: PULSE 63; RESP 18; O2SAT 97
[2025-03-22 21:00] VITALS: BP 116/59; PULSE 63; RESP 18; TEMP 97.7; O2SAT 97
[2025-03-22] MEDS: ATORVASTATIN 20 MG TAB PO SCH (21:18)
[2025-03-23] VITALS (9 sets, daily range): BP systolic 121–139; BP diastolic 56–79; PULSE 51–68; RESP 17–18; TEMP 97–98.9; O2SAT 91–97
[2025-03-23 06:47] LABS: Hematocrit 36.8 % (36.0-46.0); Hemoglobin 12.6 g/dL (12.2-16.2); Mean Corpuscular Hemoglobin 30.8 pg (28.0-32.0); Mean Corpuscular Volume 90.2 fL (80.0-100.0); Nucleated Red Blood Cells % 0.1 %
[2025-03-23 06:56] LABS: Alanine Aminotransferase 15 U/L (7-40); Albumin 3.6 g/dL (3.2-4.8); Alkaline Phosphatase 72 U/L (46-116); Anion Gap 7 (5-15); BUN/Creatinine Ratio 5.5 (10.0-20.0); Calcium 9.2 mg/dL (8.7-10.4); Carbon Dioxide 27 mmol/L (20-31); Chloride 102 mmol/L (98-107); Potassium 4.0 mmol/L (3.5-5.1); Sodium 136 mmol/L (136-145); Total Protein 5.8 g/dL (5.7-8.2)
[2025-03-23 06:57] LABS: Bilirubin, Total 0.4 mg/dL (0.2-1.0)
[2025-03-23 06:58] LABS: Blood Urea Nitrogen 7 mg/dL (9-23); Glucose 170 mg/dL (74-106)
[2025-03-23] MEDS ORDERED: MORPHINE SULFATE 4 MG/ML SYR/VIAL IV PRN ×2 (07:15→11:00)
[2025-03-23] MEDS: LOSARTAN POTASSIUM 25 MG TAB PO SCH (10:19)
--- NOTE | 2025-03-23 10:25 | DVHPN2 ---
Progress Note - Dictate Date Seen: Mar 23, 2025 Medical Necessity Reason Pt with a Central, PICC or Fol: No Subjective E: no major events o/n. NGT was pulled out last night for unclear reason. denies abd pain. no complaints. vital signs Vital Sign Date Time Temp Pulse Resp B/P (MAP) Pulse Ox O2 Delivery O2 Flow Rate FiO2 03/23/25 05:00 97.6 51 18 121/61 (81) 91 97.6 03/22/25 20:00 Room Air* 0 21 Total Intake and Output 03/22/25 03/22/25 03/23/25 15:00 23:00 07:00 Intake Total 400 ml 0 ml 350 ml Balance 400 ml 0 ml 350 ml medications Current Medications Medications Dose Ordered Sig/Oz Route Start Time Stop Time Status Last Admin Dose Admin Piperacillin Sod/ Tazobactam Sod 100 ml @ 25 mls/hr Q8HR IV 03/22/25 06:00 03/23/25 05:44 25 MLS/HR Atorvastatin Calcium 20 mg HS PO 03/22/25 22:00 03/22/25 21:18 20 MG Losartan Potassium 25 mg DAILY PO 03/23/25 10:00 Diagnostic Test (Pha) 1 strip Q6HR 03/22/25 12:00 03/23/25 05:48 1 STRIP Insulin Human Regular Q6HR SC 03/22/25 12:00 Dextrose 50 ml UD PRN IV 03/22/25 10:30 Sodium Chloride 1,000 ml @ 60 mls/hr [id number] IV 03/22/25 10:30 03/23/25 02:58 60 MLS/HR Acetaminophen/ Hydrocodone Bitart 1 tab Q4HP PRN PO 03/22/25 10:30 Ondansetron HCl 4 mg Q4HP PRN IV 03/22/25 10:30 03/22/25 11:02 4 MG Acetaminophen 650 mg Q6HP PRN PO 03/22/25 10:30 Nitroglycerin 0.4 mg Q5MINP PRN SL 03/22/25 11:45 Morphine Sulfate 2 mg Q30M PRN IV 03/22/25 11:45 Morphine Sulfate 2 mg Q4HPRN PRN IV 03/23/25 07:15 objective GEN: NAD ABD: soft. NT. laboratory and microbiology Laboratory Tests 03/23/25 06:06 Test 03/23/25 06:06 Range/Units Serum Glucose 170 H 74-106 mg/dL Assessment/Plan A: 1. Likely perforated viscus with possible ischemic bowel however clinically stable P: 1. TPN 2. spoke to daughter regarding patient's condition. will cont conservative tx with plans to repeat CT in 1-2 days with gastrografin. Plan discussed with: Patient, Daughter MAME GUAN MD Mar 23, 2025 10:25
--- NOTE | 2025-03-23 10:28 | DVHPN2 ---
Progress Note Date Seen: Mar 23, 2025 Medical Necessity Reason Pt with a Central, PICC or Fol: No Subjective Patient reports: No new complaints Review of Systems: HEENT:Normal, CVS:Normal, RESPIRATORY:Normal, GI:Normal, :Normal, MSK:Normal, NEURO:Normal Objective vital signs Vital Sign Date Time Temp Pulse Resp B/P (MAP) Pulse Ox O2 Delivery O2 Flow Rate FiO2 03/23/25 05:00 97.6 51 18 121/61 (81) 91 97.6 03/22/25 20:00 Room Air* 0 21 Total Intake and Output 03/22/25 03/22/25 03/23/25 14:59 22:59 06:59 Intake Total 400 ml 0 ml 350 ml Balance 400 ml 0 ml 350 ml medications Current Medications Medications Dose Ordered Sig/Oz Route Start Time Stop Time Status Last Admin Dose Admin Piperacillin Sod/ Tazobactam Sod 100 ml @ 25 mls/hr Q8HR IV 03/22/25 06:00 03/23/25 05:44 25 MLS/HR Atorvastatin Calcium 20 mg HS PO 03/22/25 22:00 03/22/25 21:18 20 MG Losartan Potassium 25 mg DAILY PO 03/23/25 10:00 Diagnostic Test (Pha) 1 strip Q6HR 03/22/25 12:00 03/23/25 05:48 1 STRIP Insulin Human Regular Q6HR SC 03/22/25 12:00 Dextrose 50 ml UD PRN IV 03/22/25 10:30 Sodium Chloride 1,000 ml @ 60 mls/hr [id number] IV 03/22/25 10:30 03/23/25 02:58 60 MLS/HR Acetaminophen/ Hydrocodone Bitart 1 tab Q4HP PRN PO 03/22/25 10:30 Ondansetron HCl 4 mg Q4HP PRN IV 03/22/25 10:30 03/22/25 11:02 4 MG Acetaminophen 650 mg Q6HP PRN PO 03/22/25 10:30 Nitroglycerin 0.4 mg Q5MINP PRN SL 03/22/25 11:45 Morphine Sulfate 2 mg Q30M PRN IV 03/22/25 11:45 Morphine Sulfate 2 mg Q4HPRN PRN IV 03/23/25 07:15 Examination: GENERAL:Normal, HEENT:Normal, NECK:Normal, LUNGS:Normal, CVS:Normal, ABDOMEN:Normal, ABDOMEN:Abnormal (non tender), MSK:Normal, SKIN:Normal, NEURO:Normal, :Normal laboratory and microbiology Laboratory Tests 03/23/25 06:06 Test 03/23/25 06:06 Range/Units Serum Glucose 170 H 74-106 mg/dL Problem List/Assessment/Plan Problem List/Assessment/Plan #1 free air ? bowel perforation: npo, ivf, iv antibiotics #2 dm: ssi #3 htn #4 acute renal failure ?vasomotor nephropathy #5 morbid obesity #6 cad/chronic systolic heart failure #7 s/p open [facility] advance care planning- full code- time spent 19 mins Plan discussed with: Patient Date of Service: Mar 23, 2025 Billing Provider: DAX FIGUEROA MD Common Visit Codes: [id number] INP/OBS CARE(HIGH) Secondary Visit Codes: [id number] CARE PLAN 30 MINUTES DAX FIGUEROA MD Mar 23, 2025 10:28
[2025-03-23] MEDS: PANTOPRAZOLE 40 MG/10 ML VIAL INJ IV ONE (12:12)
[2025-03-23] MEDS ORDERED: CLINIMIX PER PHARMACY 0 ML IV SCH (19:15)
[2025-03-23] MEDS: AMINO ACID INFUSION IN D10W 1,000 ML IV SCH (21:46)
[2025-03-24] VITALS (9 sets, daily range): BP systolic 138–159; BP diastolic 61–71; PULSE 52–71; RESP 16–18; TEMP 96.9–98.1; O2SAT 92–98
[2025-03-24 07:08] LABS: Hematocrit 36.6 % (36.0-46.0); Hemoglobin 12.4 g/dL (12.2-16.2); Mean Corpuscular Hemoglobin 30.6 pg (28.0-32.0); Mean Corpuscular Volume 90.2 fL (80.0-100.0); Nucleated Red Blood Cells % 0.0 %
[2025-03-24 07:31] LABS: Magnesium 1.4 mg/dL (1.6-2.6)
[2025-03-24 07:33] LABS: Alanine Aminotransferase 14 U/L (7-40); Albumin 3.6 g/dL (3.2-4.8); Alkaline Phosphatase 67 U/L (46-116); Anion Gap 9 (5-15); BUN/Creatinine Ratio 6.1 (10.0-20.0); Calcium 9.2 mg/dL (8.7-10.4); Carbon Dioxide 26 mmol/L (20-31); Chloride 103 mmol/L (98-107); Sodium 138 mmol/L (136-145); Total Protein 5.8 g/dL (5.7-8.2)
[2025-03-24 07:34] LABS: Blood Urea Nitrogen 7 mg/dL (9-23); Glucose 255 mg/dL (74-106); Potassium 3.5 mmol/L (3.5-5.1)
[2025-03-24 07:35] LABS: Bilirubin, Total 0.4 mg/dL (0.2-1.0)
--- NOTE | 2025-03-24 07:48 | DVH ---
CLINICAL INFORMATION: 79 years old, Female; cad. TECHNIQUE: Single AP portable chest radiograph was obtained. COMPARISON: XY CHEST PORTABLE on DOS: 03/22/25 FINDINGS: There is pneumoperitoneum with free air under the right hemidiaphragm, appears slightly decreased compared to the prior CT, likely moderate pneumoperitoneum. There is elevation of the right hemidiaphragm. Bibasilar atelectasis. No focal consolidation visualized. Subtle mild Bilateral interstitial opacities. No focal consolidation, pneumothorax, or pleural effusion visualized. Unchanged cardiomegaly. No other significant interval change. IMPRESSION: 1. Pneumoperitoneum, appears decreased compared to the prior exam but likely moderate pneumoperitoneum. 2. Mild interstitial opacities are nonspecific, may be infectious or inflammatory in nature or due to mild interstitial pulmonary edema. Correlate with clinical findings. Similar-appearing cardiomegaly.
--- NOTE | 2025-03-24 07:54 | DVH ---
CLINICAL HISTORY: Bowel perforation. TECHNIQUE: Single AP supine abdominal radiograph was obtained. COMPARISON: CT of the abdomen and pelvis dated 03/22/2025. FINDINGS: There is pneumoperitoneum when correlated with same day chest radiograph, likely Moderate pneumoperitoneum. Very limited Examination. Portions of the abdomen are excluded from the [id number] of the exam. There are distended loops of bowel, appear to be colon when correlated with prior CT exam. Nonspecific mildly distended, gas-filled small bowel loops also seen. IMPRESSION: 1. Pneumoperitoneum. Suspected bowel perforation in the absence of recent surgery. Pneumoperitoneum also seen on the prior chest radiograph and CT of the abdomen and pelvis. 2. Limited examination. Distended loops of colon and mildly distended gas-filled loops of small bowel are seen.
--- NOTE | 2025-03-24 09:02 | DVHPN2 ---
Progress Note - Dictate Date Seen: Mar 24, 2025 Medical Necessity Reason Pt with a Central, PICC or Fol: No Subjective E: no major events o/n. no complaints. denies abd pain. vital signs Vital Sign Date Time Temp Pulse Resp B/P (MAP) Pulse Ox O2 Delivery O2 Flow Rate FiO2 03/24/25 08:33 98.1 60 16 158/71 (100) 92 98.1 03/23/25 20:00 Room Air* 0 21 Total Intake and Output 03/23/25 03/23/25 03/24/25 15:00 23:00 07:00 Intake Total 100 ml 100 ml Output Total 2 ml 2 ml Balance 98 ml 98 ml medications Current Medications Medications Dose Ordered Sig/Oz Route Start Time Stop Time Status Last Admin Dose Admin Piperacillin Sod/ Tazobactam Sod 100 ml @ 25 mls/hr Q8HR IV 03/22/25 06:00 03/24/25 05:51 25 MLS/HR Losartan Potassium 25 mg DAILY PO 03/23/25 10:00 Diagnostic Test (Pha) 1 strip Q6HR 03/22/25 12:00 03/24/25 05:51 1 STRIP Insulin Human Regular Q6HR SC 03/22/25 12:00 03/24/25 06:01 6 UNITS Dextrose 50 ml UD PRN IV 03/22/25 10:30 Sodium Chloride 1,000 ml @ 60 mls/hr [id number] IV 03/22/25 10:30 03/23/25 02:58 60 MLS/HR Ondansetron HCl 4 mg Q4HP PRN IV 03/22/25 10:30 03/22/25 11:02 4 MG Acetaminophen 650 mg Q6HP PRN PO 03/22/25 10:30 Nitroglycerin 0.4 mg Q5MINP PRN SL 03/22/25 11:45 Morphine Sulfate 2 mg Q30M PRN IV 03/22/25 11:45 Morphine Sulfate 1 mg Q4HP PRN IV 03/23/25 11:00 Pantoprazole Sodium 40 mg DAILY IV 03/24/25 10:00 Amino Acids 0 ml @ 0 mls/hr PER PHARMACY IV 03/23/25 19:15 Amino Acids/ Electrolytes/ Dextrose 1,000 ml @ 42 mls/hr DAILY@2200 IV 03/23/25 22:00 03/23/25 21:46 42 MLS/HR objective GEN: NAD ABD: soft. NT. laboratory and microbiology Laboratory Tests 03/24/25 06:36 Test 03/24/25 06:36 Range/Units Serum Glucose 255 H 74-106 mg/dL Assessment/Plan A: 1. Likely perforated viscus with possible ischemic bowel however clinically stable P: 1. CT abd/pelvis with gastrografin. no if leak, consider clear liquid diet. Plan discussed with: Patient MAME GUAN MD Mar 24, 2025 09:02
[2025-03-24] MEDS: PANTOPRAZOLE 40 MG/10 ML VIAL INJ IV SCH (09:15)
--- NOTE | 2025-03-24 10:31 | DVHPN2 ---
Progress Note Date Seen: Mar 24, 2025 Medical Necessity Reason Pt with a Central, PICC or Fol: No Subjective Patient reports: No new complaints Review of Systems: HEENT:Normal, CVS:Normal, RESPIRATORY:Normal, GI:Normal, :Normal, MSK:Normal, NEURO:Normal Objective vital signs Vital Sign Date Time Temp Pulse Resp B/P (MAP) Pulse Ox O2 Delivery O2 Flow Rate FiO2 03/24/25 09:17 158/71 03/24/25 08:33 98.1 60 16 92 98.1 03/23/25 20:00 Room Air* 0 21 Total Intake and Output 03/23/25 03/23/25 03/24/25 15:00 23:00 07:00 Intake Total 100 ml 100 ml Output Total 2 ml 2 ml Balance 98 ml 98 ml medications Current Medications Medications Dose Ordered Sig/Oz Route Start Time Stop Time Status Last Admin Dose Admin Piperacillin Sod/ Tazobactam Sod 100 ml @ 25 mls/hr Q8HR IV 03/22/25 06:00 03/24/25 05:51 25 MLS/HR Losartan Potassium 25 mg DAILY PO 03/23/25 10:00 03/24/25 09:17 25 MG Diagnostic Test (Pha) 1 strip Q6HR 03/22/25 12:00 03/24/25 05:51 1 STRIP Insulin Human Regular Q6HR SC 03/22/25 12:00 03/24/25 06:01 6 UNITS Dextrose 50 ml UD PRN IV 03/22/25 10:30 Sodium Chloride 1,000 ml @ 60 mls/hr [id number] IV 03/22/25 10:30 03/23/25 02:58 60 MLS/HR Ondansetron HCl 4 mg Q4HP PRN IV 03/22/25 10:30 03/22/25 11:02 4 MG Acetaminophen 650 mg Q6HP PRN PO 03/22/25 10:30 Nitroglycerin 0.4 mg Q5MINP PRN SL 03/22/25 11:45 Morphine Sulfate 2 mg Q30M PRN IV 03/22/25 11:45 Morphine Sulfate 1 mg Q4HP PRN IV 03/23/25 11:00 Pantoprazole Sodium 40 mg DAILY IV 03/24/25 10:00 03/24/25 09:15 40 MG Amino Acids 0 ml @ 0 mls/hr PER PHARMACY IV 03/23/25 19:15 Amino Acids/ Electrolytes/ Dextrose 1,000 ml @ 42 mls/hr DAILY@2200 IV 03/23/25 22:00 03/23/25 21:46 42 MLS/HR Examination: GENERAL:Normal, HEENT:Normal, NECK:Normal, LUNGS:Normal, CVS:Normal, ABDOMEN:Normal, MSK:Normal, SKIN:Normal, NEURO:Normal, :Normal laboratory and microbiology Laboratory Tests 03/24/25 06:36 Test 03/24/25 06:36 Range/Units Serum Glucose 255 H 74-106 mg/dL Problem List/Assessment/Plan Problem List/Assessment/Plan #1 free air likely bowel perforation: npo, ivf, iv antibiotics, ct with gastrograffin #2 dm: ssi #3 htn #4 acute renal failure ?vasomotor nephropathy #5 morbid obesity #6 cad/chronic systolic heart failure #7 s/p open [place] unstable for transfer advance care planning- full code- time spent 19 mins Plan discussed with: Patient, Daughter Date of Service: Mar 24, 2025 Billing Provider: DAX FIGUEROA MD Common Visit Codes: [id number] INP/OBS CARE(HIGH) Secondary Visit Codes: [id number] CARE PLAN 30 MINUTES DAX FIGUEROA MD Mar 24, 2025 10:31
[2025-03-24] MEDS: GASTROGRAFIN 30 ML SOL ONE (13:14)
[2025-03-24] MEDS: MAGNESIUM SULFATE 1GM/100ML 100 ML IV SCH (13:14)
--- NOTE | 2025-03-24 13:57 | DVH ---
EXAM: CT CT AB PEL WITH ORAL CON ONLY History: pneumoperitoneum Comparison Study: CT CT AB PEL WO CON-NO ORAL OR IV on DOS: 03/21/25 TECHNIQUE: Multidetector spiral CT of the abdomen was performed from lung bases to pubic symphysis. Imaging was performed without IV contrast. Axial, coronal and sagittal multiplanar reformats were obtained from the axial data set by the technologist. Radiation Dose : 1. Abdomen/Pelvis: CTDIvol 25.13 mGy, DLP 1407.67 mGy*cm. Contrast: 1000 cc oral Gastrografin. FINDINGS: Evaluation of solid organs is limited due to lack of intravenous contrast use. Lung Bases: No acute or significant lung base finding. Normal heart size. No pleural or pericardial effusion. Liver: Stable large hypodense liver lesion within the right lobe superiorly. Gallbladder and Biliary Tree: Gallbladder is surgically absent. Spleen: Unremarkable Pancreas: The pancreas is grossly normal in appearance. Adrenal Glands: Unremarkable Kidneys: Kidneys are grossly normal without calculi or hydronephrosis. Bladder: Grossly unremarkable for degree of distention. Bowel: Moderate volume of free air again noted although slightly less when compared to the prior study. Oral contrast reaches the distal small bowel with no extravasated contrast or free fluid. Contrast not yet within the colon. Persistent pneumatosis. Ascites: Absent Lymphadenopathy: No mesenteric, retroperitoneal or periportal lymphadenopathy. Abdominal Wall and Mesentery: Unremarkable. Vasculature: The visualized abdominal aorta is normal in size and caliber. Evaluation of abdominal and pelvic vessels is limited due to lack of intravenous contrast. Pelvic Organs: Unremarkable Musculoskeletal: No aggressive focal bony lesions, acute fractures or dislocation. IMPRESSION: Persistent free air with no extravasated oral contrast to more definitively localize a leak. Please note contrast has not yet reached the colon. Radiation optimization: All CT scans at this facility use at least one of these dose optimization techniques: automated exposure control mA and/or kV adjustment per patient size (includes targeted exams where dose is matched to clinical indication) or iterative reconstruction.
--- NOTE | 2025-03-24 15:58 | CONS ---
Pharmacy Clinical Information: From Heart Failure Fallout Report on CQM Application, Donya Feliciano is an 79-year-old female with PMH of congestive heart failure with mildly reduced EF at 45-50% (2018) - now HFrEF at 20-25% (03/22/25), hypertension, dyslipidemia, insulin-dependent diabetes mellitus, liver hemangioma, right ovarian mass, and morbid obesity Her home medications for CHF include carvedilol, and losartan For optimal heart failure GDMT, when clinically appropriate, please consider: - Resume patients home medications: carvedilol, and losartan - Initiate a mineralocorticoid receptor antagonist (ex: spironolactone) and a SGLT2 inhibitor (ex: empagliflozin) Monitor blood pressure, heart rate, renal function, electrolytes, and titrate doses toward guideline-recommended targets. OJSE APPLE [facility] RESIDENT Mar 24, 2025 15:58
[2025-03-24] MEDS: PIPERACILLIN-TAZOB 3.375GM 100 ML IV SCH (18:12)
[2025-03-24] MEDS: POTASSIUM PHOSPHATE 22 MEQ in SODIUM CHL 0.9% 100 ML IV ONE (22:48)
[2025-03-25] VITALS (8 sets, daily range): BP systolic 131–159; BP diastolic 50–84; PULSE 48–93; RESP 16–18; TEMP 97.3–98.5; O2SAT 93–97
[2025-03-25 06:58] LABS: Hematocrit 36.2 % (36.0-46.0); Hemoglobin 12.1 g/dL (12.2-16.2); Mean Corpuscular Hemoglobin 30.4 pg (28.0-32.0); Mean Corpuscular Volume 90.6 fL (80.0-100.0); Nucleated Red Blood Cells % 0.0 %
[2025-03-25 07:14] LABS: Anion Gap 10 (5-15); Carbon Dioxide 25 mmol/L (20-31); Chloride 103 mmol/L (98-107); Potassium 3.1 mmol/L (3.5-5.1); Sodium 138 mmol/L (136-145)
[2025-03-25 07:15] LABS: Calcium 9.2 mg/dL (8.7-10.4)
[2025-03-25 07:20] LABS: BUN/Creatinine Ratio 4.3 (10.0-20.0)
[2025-03-25 07:22] LABS: Blood Urea Nitrogen 5 mg/dL (9-23); Glucose 290 mg/dL (74-106)
[2025-03-25 07:34] LABS: Anion Gap 11.0 (5-15); Carbon Dioxide 24.0 mmol/L (20-31); Chloride 104.0 mmol/L (98-107); Sodium 139.0 mmol/L (136-145)
[2025-03-25 07:35] LABS: Calcium 9.3 mg/dL (8.7-10.4); Potassium 3.1 mmol/L (3.5-5.1)
[2025-03-25 07:40] LABS: BUN/Creatinine Ratio 4.2 (10.0-20.0)
[2025-03-25 07:42] LABS: Albumin 3.6 g/dL (3.2-4.8)
[2025-03-25 07:44] LABS: Blood Urea Nitrogen 5.0 mg/dL (9-23); Glucose 290.0 mg/dL (74-106); Magnesium 1.6 mg/dL (1.6-2.6)
--- NOTE | 2025-03-25 10:35 | DVHDS2 ---
Discharge Summary Date of Admission Mar 22, 2025 at 11:40 Date of Discharge: Mar 25, 2025 Labs/Diagnostic Data: Laboratory Results Test 03/25/25 06:18 03/25/25 05:29 03/24/25 06:36 03/22/25 09:55 White Blood Count 3.8 10^3/uL (4.4-10.8) Red Blood Count 4.00 10^6/uL (4.0-5.20) Hemoglobin 12.1 g/dL (12.2-16.2) Hematocrit 36.2 % (36.0-46.0) Mean Corpuscular Volume 90.6 fL (80.0-100.0) Mean Corpuscular Hemoglobin 30.4 pg (28.0-32.0) Mean Corpuscular Hemoglobin Concent 33.5 g/dL (32.0-36.0) Red Cell Distribution Width 14.0 % (11.8-14.3) Platelet Count 106 10^3/uL (140-450) Mean Platelet Volume 8.5 fL (6.9-10.8) Neutrophils (%) (Auto) 70.2 % (37.0-80.0) Lymphocytes (%) (Auto) 19.2 % (10.0-50.0) Monocytes (%) (Auto) 8.1 % (0.0-12.0) Eosinophils (%) (Auto) 2.1 % (0.0-7.0) Basophils (%) (Auto) 0.4 % (0.0-2.0) Neutrophils # (Auto) 2.7 10 ^3/uL (1.6-8.6) Lymphocytes # (Auto) 0.7 10 ^3/uL (0.4-5.4) Monocytes # (Auto) 0.3 10 ^3/uL (0-1.3) Eosinophils # (Auto) 0.1 10 ^3/uL (0-0.8) Basophils # (Auto) 0 10 ^3/uL (0-0.2) Nucleated Red Blood Cells 0.0 % Sodium Level 139 mmol/L (136-145) Potassium Level 3.1 mmol/L (3.5-5.1) Chloride Level 104 mmol/L (98-107) Carbon Dioxide Level 24 mmol/L (20-31) Anion Gap 11 (5-15) Blood Urea Nitrogen 5 mg/dL (9-23) Creatinine 1.18 mg/dL (0.550-1.02) Glomerular Filtration Rate Calc 47 mL/min (>90) Estimated GFR () 57 mL/min Estimated GFR (Non- 47 mL/min BUN/Creatinine Ratio 4.2 (10.0-20.0) Serum Glucose 290 mg/dL (74-106) Calcium Level 9.3 mg/dL (8.7-10.4) Phosphorus Level 2.0 mg/dL (2.4-5.1) Magnesium Level 1.6 mg/dL (1.6-2.6) Albumin 3.6 g/dL (3.2-4.8) POC Glucose 304 mg/dl (70-106) Total Bilirubin 0.4 mg/dL (0.2-1.0) Aspartate Amino Transferase (AST) 16 U/L (13-40) Alanine Aminotransferase (ALT) 14 U/L (7-40) Alkaline Phosphatase 67 U/L (46-116) Total Protein 5.8 g/dL (5.7-8.2) Urine Color Colorless (Yellow) Urine Clarity Clear (Clear) Urine pH 5.5 (5.0-9.0) Urine Specific [place] 1.007 (1.001-1.035) Urine Protein Negative (Negative) Urine Ketones Negative (Negative) Urine Blood Negative /uL (Negative) Urine Nitrite Negative (Negative) Urine Bilirubin Negative (Negative) Urine Urobilinogen Normal mg/dL (Negative) Urine Leukocyte Esterase Negative /uL (Negative) Urine RBC <1 /hpf (0 - 4) Urine Microscopic WBC 1 /HPF (0-5) Urine Squamous Epithelial Cells Few /hpf (<5) Urine Bacteria Few /hpf (None Seen) Urine Glucose Normal mg/dL (Normal) Test 03/22/25 05:07 03/21/25 22:47 03/21/25 22:42 Prothrombin Time 11.2 sec (9.3-11.8) Prothrombin Time INR 1.06 (0.9-1.15) Activated Partial Thromboplast Time 25.2 SEC (24.5-34.5) Hemoglobin A1c 7.5 % A1C (<5.7) B-Type Natriuretic Peptide 121.18 pg/mL (0-100) Triglycerides Level 60 mg/dL (< 150) Cholesterol Level 67 mg/dL (< 200) LDL Cholesterol 21 mg/dL (< 100) HDL Cholesterol 33 mg/dL (40-59) Thyroid Stimulating Hormone (TSH) 2.18 uIU/mL (0.55-4.78) Lipase 26 U/L (12-53) Lactic Acid Level 1.0 mmol/L (0.4-2.0) Other Laboratory Tests 03/25/25 06:18 Brief Hx & Hospital Course: see dictated note Condition at Discharge: Fair Final Diagnosis/Problems List abd pain Discharge Disposition: Acute Care Facility Discharge Instruct/Medications Diet: See Comment Diet comment: npo Activity: No Restrictions, As Tolerated Follow Up/Referral: fu with [facility] Medications: per mar Scheduled Carvedilol (Carvedilol), 1 TAB PO Q12HR, (Reported) Furosemide (Furosemide), 1 TAB PO DAILY, (Reported) Hctz (Hydrochlorothiazide), 0.5 TAB PO QAM, (Reported) Insulin Isophane & Reg (Human) (Humulin 70/30 (70-30) 100 Unit/ml), 60 UNITS SC DAILY, (Reported) Losartan Potassium (Losartan Potassium), 1 TAB PO DAILY, (Reported) Pancreatic Enzymes (Creon), 1 CAP PO TIDWM, (Reported) Potassium Chloride (K-Tab), 1 TAB PO BID, (Reported) Simvastatin (Simvastatin), 1 TAB PO DAILY, (Reported) Discharge Statement: "Patient was advised to return to the ER or call 911 if any headaches, dizziness, shortness of breath, chest pain, abdominal pain, bleeding, fevers, or worsening of medical condition. Patient was counseled about treatment plan, medications, possible side effects, patientverbalized understanding. All questions were answered to the best of my ability. This discharge took greater then 30 minutes in planning, reviewing documentation, counseling the patient, and discussing with other team members." ASSESSMENT ASSESSMENT Assessment abd pain Date of Service: Mar 25, 2025 Billing Provider: DAX FIGUEROA MD Common Visit Codes: [id number]/[id number] DISCH DAY >30min DAX FIGUEROA MD Mar 25, 2025 10:35
[2025-03-25] MEDS ORDERED: POTASSIUM CHLORIDE 40 MEQ, LIDOCAINE 1% (LOCAL ANESTH.) 4 ML in SODIUM CHL 0.9% 250 ML IV ONE (10:45)
[2025-03-25] MEDS ORDERED: MAGNESIUM SULFATE 1GM/100ML 100 ML IV SCH (11:00)
--- NOTE | 2025-03-25 11:36 | DVHDS ---
DATE OF DISCHARGE: 03/25/2025 TRANSFER SUMMARY HISTORY OF PRESENT ILLNESS: The patient is an 79-year-old lady who is admitted with complaints of abdominal pain and nausea and has a history of coronary artery disease, diabetes, hypertension, and previous gallbladder surgery. HOSPITAL COURSE: The patient had a CT of abdomen and pelvis that showed evidence of free air in the abdomen. The patient was seen in surgery consult by Dr. Dominguez. The patient, however, was noted to be asymptomatic with subsequent no abdominal pain. The patient had a CT of abdomen and pelvis with Gastrografin that showed free air, but no extravasated oral contrast was noted. The patient has had bowel activity since then. The patient currently is n.p.o., on IV antibiotics and IV Clinimix. She will be transferred to [place] for further management. The patient also was seen in cardiology consult by . FINAL DIAGNOSES: * Pneumoperitoneum with questionable bowel perforation. * Diabetes mellitus. * Hypertension. * Acute renal failure, questionable vasomotor nephropathy. * Morbid obesity. * Coronary artery disease with chronic systolic heart failure. * Thrombocytopenia. * History of open cholecystectomy. Time spent in discharge planning and review of plan with the patient, nursing and paperwork was 39 minutes. MD KM Arce/MISAEL TID: [id number] RECEIPT: [id number] MTDD
--- NOTE | 2025-03-25 12:40 | DVHPN2 ---
Progress Note - Surgical Date Seen: Mar 25, 2025 Post op day Post op day: 0 Subjective Patient reports: Feels better (Patient feeling well, no abdominal pain complaints, had 7 bowel movements) Review of Systems: Deferred Objective Vital signs Vital Sign Date Time Temp Pulse Resp B/P (MAP) Pulse Ox O2 Delivery O2 Flow Rate FiO2 03/25/25 09:00 98.0 76 16 131/64 (86) 94 98.0 03/24/25 20:00 Room Air* 0 21 Total Intake and Output 03/24/25 03/24/25 03/25/25 15:00 23:00 07:00 Intake Total 100 ml 200 ml 805 ml Output Total 150 ml Balance -50 ml 200 ml 805 ml Medications Current Medications Medications Dose Ordered Sig/Oz Route Start Time Stop Time Status Last Admin Dose Admin Diagnostic Test (Pha) 1 strip Q6HR 03/22/25 12:00 03/25/25 05:32 1 STRIP Insulin Human Regular Q6HR SC 03/22/25 12:00 03/25/25 05:34 8 UNITS Dextrose 50 ml UD PRN IV 03/22/25 10:30 Sodium Chloride 1,000 ml @ 60 mls/hr [id number] IV 03/22/25 10:30 03/25/25 01:54 60 MLS/HR Ondansetron HCl 4 mg Q4HP PRN IV 03/22/25 10:30 03/22/25 11:02 4 MG Acetaminophen 650 mg Q6HP PRN PO 03/22/25 10:30 Nitroglycerin 0.4 mg Q5MINP PRN SL 03/22/25 11:45 Morphine Sulfate 2 mg Q30M PRN IV 03/22/25 11:45 Morphine Sulfate 1 mg Q4HP PRN IV 03/23/25 11:00 Pantoprazole Sodium 40 mg DAILY IV 03/24/25 10:00 03/25/25 10:19 40 MG Amino Acids 0 ml @ 0 mls/hr PER PHARMACY IV 03/23/25 19:15 Amino Acids/ Electrolytes/ Dextrose 1,000 ml @ 42 mls/hr DAILY@2200 IV 03/23/25 22:00 03/24/25 22:44 42 MLS/HR Hydralazine HCl 10 mg Q6HP PRN IV 03/24/25 10:30 Piperacillin Sod/ Tazobactam Sod 100 ml @ 25 mls/hr Q8H IV 03/24/25 18:00 03/25/25 10:20 25 MLS/HR Magnesium Sulfate/ Dextrose 100 ml @ 100 mls/hr Q1HR IV 03/25/25 11:00 03/25/25 12:59 Laboratory Laboratory Tests 03/25/25 06:18 Test 03/25/25 06:18 Range/Units Serum Glucose 290 H 74-106 mg/dL Examination: GENERAL:Normal (AAO x3), LUNGS:Normal (Nonlabored breathing with symmetric expansion), ABDOMEN:Normal (Nondistended, large pannus, soft, depressible, nontender) Labs and/or images reviewed: Labs reviewed by me (No leukocytosis) Problem List/Assessment/Plan Assessment and Plan Mrs. Feliciano is a 79-year-old female who presented on March 21 with abdominal pain, pain has been present for 2-3 days prior to admission, CT showed large amounts of free intraperitoneal air. Patient opted for nonoperative management and given that she was not septic on presentation this dionicio was pursued. She had a repeat CT with p.o. contrast yesterday which does not show any extravasation, but contrast had not reached the colon. Patient had 7 bowel movements since the administration of the contrast. On physical exam today she has a completely benign abdomen. Patient is currently pending transfer to [facility]. 1. Recommend continuing NPO status for at least 5 days from presentation 2. Continue Zosyn 3. Out of bed and ambulate 4. Continue TPN 5. Pending transfer Plan discussed with Plan discussed with: Patient Visit Coding Surgery Date of Service if different f: Mar 25, 2025 Billing Provider: MAYRA STONE MD Surgery Visit Codes: [id number] INP/OBS CARE(HIGH) MAYRA STONE MD Mar 25, 2025 12:40
[2025-03-25] MEDS: MAGNESIUM SULFATE 1GM/100ML 100 ML IV SCH (12:47)
[2025-03-25] MEDS: POTASSIUM PHOSPHATE 26.4 MEQ in SODIUM CHL 0.9% 100 ML IV ONE (13:25)
[2025-03-25] MEDS: hydrALAZINE HCL 20 MG/ML VL IV PRN (16:26)
[2025-03-25] MEDS: POTASSIUM CHL 20MEQ/100ML 100 ML IV ONE (18:10)
[2025-03-25] MEDS: ACETAMINOPHEN IV 1000 MG/100ML (10MG/ML) IV ONE (22:34)
[2025-03-26] VITALS (8 sets, daily range): BP systolic 129–149; BP diastolic 55–79; PULSE 57–81; RESP 16–20; TEMP 97.1–98.4; O2SAT 93–97
[2025-03-26 06:27] LABS: Hematocrit 38.2 % (36.0-46.0); Hemoglobin 13.1 g/dL (12.2-16.2); Mean Corpuscular Hemoglobin 30.9 pg (28.0-32.0); Mean Corpuscular Volume 90.1 fL (80.0-100.0); Nucleated Red Blood Cells % 0.0 %
[2025-03-26 06:41] LABS: Alanine Aminotransferase 18 U/L (7-40); Albumin 3.7 g/dL (3.2-4.8); Alkaline Phosphatase 68 U/L (46-116); Anion Gap 10 (5-15); BUN/Creatinine Ratio 4.5 (10.0-20.0); Calcium 9.5 mg/dL (8.7-10.4); Carbon Dioxide 26 mmol/L (20-31); Chloride 104 mmol/L (98-107); Magnesium 1.8 mg/dL (1.6-2.6); Sodium 140 mmol/L (136-145); Total Protein 6.1 g/dL (5.7-8.2)
[2025-03-26 06:42] LABS: Bilirubin, Total 0.4 mg/dL (0.2-1.0)
[2025-03-26 06:54] LABS: Blood Urea Nitrogen 5 mg/dL (9-23); Glucose 259 mg/dL (74-106); Potassium 3.4 mmol/L (3.5-5.1)
--- NOTE | 2025-03-26 12:37 | DVHPN2 ---
Progress Note - Surgical Date Seen: Mar 26, 2025 Post op day Post op day: 0 Subjective Patient reports: Feels better (Patient feeling good no abdominal pain complaints having bowel movements) Review of Systems: Deferred Objective Vital signs Vital Sign Date Time Temp Pulse Resp B/P (MAP) Pulse Ox O2 Delivery O2 Flow Rate FiO2 03/26/25 09:22 97.5 62 18 149/68 (95) 97 97.5 03/26/25 08:00 Room Air* 0 21 Total Intake and Output 03/25/25 03/25/25 03/26/25 15:00 23:00 07:00 Intake Total 100 ml 406 ml 0 ml Balance 100 ml 406 ml 0 ml Medications Current Medications Medications Dose Ordered Sig/Oz Route Start Time Stop Time Status Last Admin Dose Admin Diagnostic Test (Pha) 1 strip Q6HR 03/22/25 12:00 03/26/25 06:10 1 STRIP Insulin Human Regular Q6HR SC 03/22/25 12:00 03/26/25 06:12 6 UNITS Dextrose 50 ml UD PRN IV 03/22/25 10:30 Sodium Chloride 1,000 ml @ 60 mls/hr [id number] IV 03/22/25 10:30 03/25/25 22:33 60 MLS/HR Ondansetron HCl 4 mg Q4HP PRN IV 03/22/25 10:30 03/22/25 11:02 4 MG Acetaminophen 650 mg Q6HP PRN PO 03/22/25 10:30 Nitroglycerin 0.4 mg Q5MINP PRN SL 03/22/25 11:45 Morphine Sulfate 2 mg Q30M PRN IV 03/22/25 11:45 Morphine Sulfate 1 mg Q4HP PRN IV 03/23/25 11:00 Pantoprazole Sodium 40 mg DAILY IV 03/24/25 10:00 03/26/25 09:31 40 MG Amino Acids 0 ml @ 0 mls/hr PER PHARMACY IV 03/23/25 19:15 Amino Acids/ Electrolytes/ Dextrose 1,000 ml @ 42 mls/hr DAILY@2200 IV 03/23/25 22:00 03/25/25 22:44 42 MLS/HR Hydralazine HCl 10 mg Q6HP PRN IV 03/24/25 10:30 03/25/25 16:26 10 MG Piperacillin Sod/ Tazobactam Sod 100 ml @ 25 mls/hr Q8H IV 03/24/25 18:00 03/26/25 09:31 25 MLS/HR Laboratory Laboratory Tests 03/26/25 05:21 Test 03/26/25 05:21 Range/Units Serum Glucose 259 H 74-106 mg/dL Examination: GENERAL:Normal (AAO x3), LUNGS:Normal (Nonlabored breathing with symmetric expansion), ABDOMEN:Normal (Nondistended, soft, depressible, nontender) Labs and/or images reviewed: Labs reviewed by me (No leukocytosis) Problem List/Assessment/Plan Assessment and Plan Mrs. Feliciano is a 79-year-old female who presented on March 21 with abdominal pain, pain has been present for 2-3 days prior to admission, CT showed large amounts of free intraperitoneal air. Patient opted for nonoperative management and given that she was not septic on presentation this dionicio was pursued. She had a repeat CT with p.o. contrast on March 24 which does not show any extravasation, but contrast had not reached the colon. Interval: Patient continues to do well, no abdominal pain complaints, and having bowel movements. We will start her on ice chips and sips of water only. Still pending transfer 1. Okay for ice chips and sips of water 2. Continue Zosyn 3. Out of bed and ambulate 4. Continue TPN 5. Pending transfer Plan discussed with Plan discussed with: Patient Visit Coding Surgery Date of Service if different f: Mar 26, 2025 Billing Provider: MAYRA STONE MD Surgery Visit Codes: [id number] INP/OBS CARE(HIGH) MAYRA STONE MD Mar 26, 2025 12:37
[2025-03-26] MEDS: POTASSIUM CHL 20MEQ/100ML 100 ML IV ONE (12:50)
--- NOTE | 2025-03-26 17:09 | DVHPN2 ---
Subjective Doing well No abdominal pain Changes from previous H/P or p: Changes Eyes: No Pain, No Vision change, No Conjunctivae inflammation, No Eyelid inflammation, No Other, No Redness ENT: No Ear pain, No Ear discharge, No Nose pain, No Nose discharge, No Nose congestion, No Mouth pain, No Mouth swelling, No Throat pain, No Throat swelling, No Other Cardiovascular: No Chest Pain, No Palpitations, No Orthopnea, No Paroxysmal Noc. Dyspnea, No Edema, No Lt Headedness, No Other Respiratory: No Cough, No Dry; Shortness of breath; No SOB with excertion, No Wheezing, No Hemoptysis, No Pleuritic Pain, No Sputum, No Other Gastrointestinal: No Nausea, No Vomiting; Abdominal Pain; No Diarrhea, No Constipation, No Melena, No Hematochezia, No Other Genitourinary: No Dysuria, No Frequency, No Incontinence, No Hematuria, No Retention, No Other Musculoskeletal: No other, No neck pain, No shoulder pain, No arm pain, No back pain, No hand pain, No leg pain, No foot pain Skin: No Rash, No Lesions, No Jaundice, No Bruising, No Other Objective Vitals Vital Signs Date Time Temp Pulse Resp B/P (MAP) Pulse Ox O2 Delivery O2 Flow Rate FiO2 03/26/25 13:49 97.1 61 18 140/55 (83) 96 97.1 03/26/25 08:00 Room Air* 0 21 Intake/Output Intake and Output 03/26/25 07:00 Intake Total 506 ml Balance 506 ml Intake Oral 0 ml IV Total 506 ml # Voids 13 # Bowel Movements 5 General Appearance: Alert, Oriented X3, Cooperative, No acute distress Lungs: Clear to auscultation, Normal air movement Cardiovascular: Regular rate, Normal S1, Normal S2, No murmurs Abdomen: Normal bowel sounds, Soft, No tenderness Medications Current Medications Medications Dose Ordered Sig/Oz Route Start Time Stop Time Status Last Admin Dose Admin Diagnostic Test (Pha) 1 strip Q6HR 03/22/25 12:00 03/26/25 12:46 1 STRIP Insulin Human Regular Q6HR SC 03/22/25 12:00 03/26/25 12:59 8 UNITS Dextrose 50 ml UD PRN IV 03/22/25 10:30 Sodium Chloride 1,000 ml @ 60 mls/hr [id number] IV 03/22/25 10:30 03/26/25 14:32 60 MLS/HR Ondansetron HCl 4 mg Q4HP PRN IV 03/22/25 10:30 03/22/25 11:02 4 MG Acetaminophen 650 mg Q6HP PRN PO 03/22/25 10:30 Nitroglycerin 0.4 mg Q5MINP PRN SL 03/22/25 11:45 Morphine Sulfate 2 mg Q30M PRN IV 03/22/25 11:45 Morphine Sulfate 1 mg Q4HP PRN IV 03/23/25 11:00 Pantoprazole Sodium 40 mg DAILY IV 03/24/25 10:00 03/26/25 09:31 40 MG Amino Acids 0 ml @ 0 mls/hr PER PHARMACY IV 03/23/25 19:15 Amino Acids/ Electrolytes/ Dextrose 1,000 ml @ 42 mls/hr DAILY@2200 IV 03/23/25 22:00 03/25/25 22:44 42 MLS/HR Hydralazine HCl 10 mg Q6HP PRN IV 03/24/25 10:30 03/25/25 16:26 10 MG Piperacillin Sod/ Tazobactam Sod 100 ml @ 25 mls/hr Q8H IV 03/24/25 18:00 03/26/25 09:31 25 MLS/HR Laboratory Results Laboratory Tests 03/26/25 05:21 Chemistry Test 03/26/25 05:21 Albumin 3.7 g/dL (3.2-4.8) Calcium Level 9.5 mg/dL (8.7-10.4) Magnesium Level 1.8 mg/dL (1.6-2.6) Phosphorus Level 2.6 mg/dL (2.4-5.1) Total Protein 6.1 g/dL (5.7-8.2) LFT Test 03/26/25 05:21 Alanine Aminotransferase (ALT) 18 U/L (7-40) Alkaline Phosphatase 68 U/L (46-116) Aspartate Amino Transferase (AST) 16 U/L (13-40) Total Bilirubin 0.4 mg/dL (0.2-1.0) Urinalysis Test 03/22/25 09:55 Urine Color Colorless (Yellow) Urine Clarity Clear (Clear) Urine pH 5.5 (5.0-9.0) Urine Specific [place] 1.007 (1.001-1.035) Urine Protein Negative (Negative) Urine Ketones Negative (Negative) Urine Blood Negative /uL (Negative) Urine Nitrite Negative (Negative) Urine Bilirubin Negative (Negative) Urine Urobilinogen Normal mg/dL (Negative) Urine Leukocyte Esterase Negative /uL (Negative) Urine RBC <1 /hpf (0 - 4) Urine Microscopic WBC 1 /HPF (0-5) Urine Squamous Epithelial Cells Few /hpf (<5) Urine Bacteria Few /hpf (None Seen) H Urine Glucose Normal mg/dL (Normal) Assessment/Plan Assessment/Plan Pneumoperitoneum with questionable bowel perforation. Diabetes mellitus. Hypertension. Acute renal failure, questionable vasomotor nephropathy. Morbid obesity. Coronary artery disease with chronic systolic heart failure. Thrombocytopenia. History of open cholecystectomy. Hypokalemia PLAN: IV fluids TPN IV antibiotics Zosyn Replace K+ Surgery is following NPO Transfer to [facility] once a bed is available Plan discussed with: Patient Date of Service: Mar 26, 2025 Billing Provider: GABRIELA FAGAN MD Common Visit Codes: [id number] INP/OBS CARE(HIGH) GABRIELA FAGAN MD Mar 26, 2025 17:09
[2025-03-27] VITALS (8 sets, daily range): BP systolic 131–149; BP diastolic 50–63; PULSE 52–64; RESP 16–20; TEMP 97.7–98.6; O2SAT 93–97
[2025-03-27 06:54] LABS: Alanine Aminotransferase 14 U/L (7-40); Alkaline Phosphatase 60 U/L (46-116); Anion Gap 9 (5-15); BUN/Creatinine Ratio 8.2 (10.0-20.0); Calcium 9.2 mg/dL (8.7-10.4); Carbon Dioxide 26 mmol/L (20-31); Chloride 103 mmol/L (98-107); Sodium 138 mmol/L (136-145); Total Protein 5.8 g/dL (5.7-8.2)
[2025-03-27 06:55] LABS: Albumin 3.5 g/dL (3.2-4.8); Blood Urea Nitrogen 8 mg/dL (9-23); Glucose 268 mg/dL (74-106); Magnesium 1.5 mg/dL (1.6-2.6); Potassium 3.3 mmol/L (3.5-5.1)
[2025-03-27 06:56] LABS: Bilirubin, Total 0.4 mg/dL (0.2-1.0)
[2025-03-27] MEDS ORDERED: DEXTROSE (50%) 50ML SYRG IV SCH (13:30)
[2025-03-27] MEDS: MAGNESIUM SULFATE 1GM/100ML 100 ML IV SCH (14:45)
--- NOTE | 2025-03-27 15:54 | DVHPN2 ---
Progress Note - Surgical Date Seen: Mar 27, 2025 Post op day Post op day: 0 Subjective Patient reports: No new complaints (States that yesterday she felt some abdominal pain after having some ice and fell a little bit nauseous, after that she held all p.o. intake) Review of Systems: Deferred Objective Vital signs Vital Sign Date Time Temp Pulse Resp B/P (MAP) Pulse Ox O2 Delivery O2 Flow Rate FiO2 03/27/25 13:00 98.1 52 18 135/59 (84) 94 98.1 03/27/25 08:19 Room Air* 0 21 Total Intake and Output 03/26/25 03/26/25 03/27/25 15:00 23:00 07:00 Intake Total 1200 ml 200 ml 0 ml Balance 1200 ml 200 ml 0 ml Medications Current Medications Medications Dose Ordered Sig/Oz Route Start Time Stop Time Status Last Admin Dose Admin Sodium Chloride 1,000 ml @ 60 mls/hr [id number] IV 03/22/25 10:30 03/27/25 08:59 60 MLS/HR Ondansetron HCl 4 mg Q4HP PRN IV 03/22/25 10:30 03/27/25 14:51 4 MG Acetaminophen 650 mg Q6HP PRN PO 03/22/25 10:30 Nitroglycerin 0.4 mg Q5MINP PRN SL 03/22/25 11:45 Morphine Sulfate 2 mg Q30M PRN IV 03/22/25 11:45 Morphine Sulfate 1 mg Q4HP PRN IV 03/23/25 11:00 Pantoprazole Sodium 40 mg DAILY IV 03/24/25 10:00 03/27/25 08:59 40 MG Amino Acids 0 ml @ 0 mls/hr PER PHARMACY IV 03/23/25 19:15 Amino Acids/ Electrolytes/ Dextrose 1,000 ml @ 42 mls/hr DAILY@2200 IV 03/23/25 22:00 03/26/25 21:47 42 MLS/HR Hydralazine HCl 10 mg Q6HP PRN IV 03/24/25 10:30 03/25/25 16:26 10 MG Piperacillin Sod/ Tazobactam Sod 100 ml @ 25 mls/hr Q8H IV 03/24/25 18:00 03/27/25 08:58 25 MLS/HR Magnesium Sulfate/ Dextrose 100 ml @ 100 mls/hr Q1HR IV 03/27/25 14:00 03/27/25 15:59 03/27/25 14:45 100 MLS/HR Diagnostic Test (Pha) 1 strip Q6HR 03/27/25 18:00 Insulin Human Regular FOLLOW SLIDING SCALE Q6HR SC 03/27/25 18:00 Dextrose 50 ml UD IV 03/27/25 13:30 Laboratory Laboratory Tests 03/27/25 05:40 03/26/25 05:21 Test 03/27/25 05:40 Range/Units Serum Glucose 268 H 74-106 mg/dL Examination: GENERAL:Normal (AAO x3), ABDOMEN:Normal (Nondistended, soft, depressible, nontender) Labs and/or images reviewed: Labs reviewed by me Problem List/Assessment/Plan Assessment and Plan Mrs. Feliciano is a 79-year-old female who presented on March 21 with abdominal pain, pain has been present for 2-3 days prior to admission, CT showed large amounts of free intraperitoneal air. Patient opted for nonoperative management and given that she was not septic on presentation this dionicio was pursued. She had a repeat CT with p.o. contrast on March 24 which does not show any extravasation, but contrast had not reached the colon. Interval: Patient only has some mild and brief abdominal pain after having some eyes, after having this pain episode she has stopped all sips of water and ice ED, since then she has felt good, no abdominal pain complaints this morning. We will leave her on ice chips and sips of water. 1. Okay for ice chips and sips of water 2. Continue Zosyn 3. Out of bed and ambulate 4. Continue TPN 5. Pending transfer My Orders My Orders Orders - MAYRA STONE MD Procedure Category Date Status Time * Hydrotherapist CONS 03/27/25 Transmitted Consult Plan discussed with Plan discussed with: Patient Visit Coding Surgery Date of Service if different f: Mar 27, 2025 Billing Provider: MAYRA STONE MD Surgery Visit Codes: [id number] INP/OBS CARE(HIGH) MAYRA STONE MD Mar 27, 2025 15:53
[2025-03-27] MEDS ORDERED: POTASSIUM PHOSPHATE 26.4 MEQ in SODIUM CHL 0.9% 100 ML IV ONE (16:00)
--- NOTE | 2025-03-27 16:39 | DVHPN2 ---
Subjective Patient reports having abdominal pain with ice chips today Reviewed: Care Plan, H&P, Labs, Medications Changes from previous H/P or p: No Changes Eyes: No Pain, No Vision change, No Conjunctivae inflammation, No Eyelid inflammation, No Other, No Redness ENT: No Ear pain, No Ear discharge, No Nose pain, No Nose discharge, No Nose congestion, No Mouth pain, No Mouth swelling, No Throat pain, No Throat swelling, No Other Cardiovascular: No Chest Pain, No Palpitations, No Orthopnea, No Paroxysmal Noc. Dyspnea, No Edema, No Lt Headedness, No Other Respiratory: No Cough, No Dry; Shortness of breath; No SOB with excertion, No Wheezing, No Hemoptysis, No Pleuritic Pain, No Sputum, No Other Gastrointestinal: No Nausea, No Vomiting; Abdominal Pain; No Diarrhea, No Constipation, No Melena, No Hematochezia, No Other Genitourinary: No Dysuria, No Frequency, No Incontinence, No Hematuria, No Retention, No Other Musculoskeletal: No other, No neck pain, No shoulder pain, No arm pain, No back pain, No hand pain, No leg pain, No foot pain Skin: No Rash, No Lesions, No Jaundice, No Bruising, No Other Objective Vitals Vital Signs Date Time Temp Pulse Resp B/P (MAP) Pulse Ox O2 Delivery O2 Flow Rate FiO2 03/27/25 13:00 98.1 52 18 135/59 (84) 94 98.1 03/27/25 08:19 Room Air* 0 21 Intake/Output Intake and Output 03/27/25 07:00 Intake Total 1400 ml Balance 1400 ml Intake Oral 200 ml IV Total 1200 ml # Voids 7 General Appearance: Alert, Oriented X3, Cooperative, No acute distress Lungs: Clear to auscultation, Normal air movement Cardiovascular: Regular rate, Normal S1, Normal S2, No murmurs Abdomen: Normal bowel sounds, Soft, No tenderness Medications Current Medications Medications Dose Ordered Sig/Oz Route Start Time Stop Time Status Last Admin Dose Admin Sodium Chloride 1,000 ml @ 60 mls/hr [id number] IV 03/22/25 10:30 03/27/25 08:59 60 MLS/HR Ondansetron HCl 4 mg Q4HP PRN IV 03/22/25 10:30 03/27/25 14:51 4 MG Acetaminophen 650 mg Q6HP PRN PO 03/22/25 10:30 Nitroglycerin 0.4 mg Q5MINP PRN SL 03/22/25 11:45 Morphine Sulfate 2 mg Q30M PRN IV 03/22/25 11:45 Morphine Sulfate 1 mg Q4HP PRN IV 03/23/25 11:00 Pantoprazole Sodium 40 mg DAILY IV 03/24/25 10:00 03/27/25 08:59 40 MG Amino Acids 0 ml @ 0 mls/hr PER PHARMACY IV 03/23/25 19:15 Amino Acids/ Electrolytes/ Dextrose 1,000 ml @ 42 mls/hr DAILY@2200 IV 03/23/25 22:00 03/26/25 21:47 42 MLS/HR Hydralazine HCl 10 mg Q6HP PRN IV 03/24/25 10:30 03/25/25 16:26 10 MG Piperacillin Sod/ Tazobactam Sod 100 ml @ 25 mls/hr Q8H IV 03/24/25 18:00 03/27/25 08:58 25 MLS/HR Diagnostic Test (Pha) 1 strip Q6HR 03/27/25 18:00 Insulin Human Regular FOLLOW SLIDING SCALE Q6HR SC 03/27/25 18:00 Dextrose 50 ml UD IV 03/27/25 13:30 Laboratory Results Laboratory Tests 03/26/25 05:21 03/27/25 05:40 Chemistry Test 03/27/25 05:40 Albumin 3.5 g/dL (3.2-4.8) Calcium Level 9.2 mg/dL (8.7-10.4) Magnesium Level 1.5 mg/dL (1.6-2.6) L Phosphorus Level 2.3 mg/dL (2.4-5.1) L Total Protein 5.8 g/dL (5.7-8.2) LFT Test 03/27/25 05:40 Alanine Aminotransferase (ALT) 14 U/L (7-40) Alkaline Phosphatase 60 U/L (46-116) Aspartate Amino Transferase (AST) 17 U/L (13-40) Total Bilirubin 0.4 mg/dL (0.2-1.0) Urinalysis Test 03/22/25 09:55 Urine Color Colorless (Yellow) Urine Clarity Clear (Clear) Urine pH 5.5 (5.0-9.0) Urine Specific [place] 1.007 (1.001-1.035) Urine Protein Negative (Negative) Urine Ketones Negative (Negative) Urine Blood Negative /uL (Negative) Urine Nitrite Negative (Negative) Urine Bilirubin Negative (Negative) Urine Urobilinogen Normal mg/dL (Negative) Urine Leukocyte Esterase Negative /uL (Negative) Urine RBC <1 /hpf (0 - 4) Urine Microscopic WBC 1 /HPF (0-5) Urine Squamous Epithelial Cells Few /hpf (<5) Urine Bacteria Few /hpf (None Seen) H Urine Glucose Normal mg/dL (Normal) Labs and/or images reviewed: Labs reviewed by me, Image(s) reviewed by me Assessment/Plan Assessment/Plan Impression: -bowel perforation with pneumoperitoneum -diabetes mellitus, uncontrolled blood sugars -primary hypertension -acute kidney injury, vasomotor nephropathy -obesity -coronary artery disease -chronic systolic heart failure Plan: -patient is stable to transfer to [facility] -surgical consultation: No surgery at this time given no signs of sepsis -CT of abdomen and pelvis with oral contrast is without extravasation. -antihypertensives -continue Clinimix -electrolyte replacement -pain management -social service consultation for transfer to [facility] -repeat labs in a.m. Total time spent with patient discussing and formulating plan of care: 35 minutes. This medical document was created using an electronic medical record system with [employer] dictation system. Although this document has been carefully reviewed, there may still be some phonetic and typographical errors. These areas are purely typographical due to imperfections of the software programs, and do not reflect any compromise in the patient's medical care. Plan discussed with: Patient, Other (RN) My Orders Orders - NADER MCFADDEN NP Procedure Category Date Status Time Insulin Lantus PHA 03/27/25 Transmitted (Glargine) (Lantus) 22:00 Date of Service: Mar 27, 2025 Billing Provider: NADER MCFADDEN NP Common Visit Codes: [id number] INP/OBS CARE(HIGH) NADER MCFADDEN NP Mar 27, 2025 16:39
[2025-03-27] MEDS ORDERED: MORPHINE SULFATE 4 MG/ML SYR/VIAL IV PRN (16:45)
[2025-03-27] MEDS: ACCU-CHEK COMFORT CURVE STRIP VI SCH (17:25)
[2025-03-27] MEDS: InsuLIN REG 1unit/0.01ml Soln (100units/ml) SC SCH (17:30)
[2025-03-27] MEDS: ACETAMINOPHEN 325 MG TAB PO PRN (17:31)
[2025-03-27] MEDS: INSULIN LANTUS (GLARGINE) 1 /0.01ml (100units/ml) SC SCH (21:59)
[2025-03-27] MEDS: POTASSIUM PHOSPHATE 26.4 MEQ in SODIUM CHL 0.9% 100 ML IV ONE (23:19)
[2025-03-28] VITALS (8 sets, daily range): BP systolic 113–163; BP diastolic 55–83; PULSE 51–72; RESP 16–18; TEMP 97.5–98; O2SAT 92–98
[2025-03-28 07:02] LABS: Alanine Aminotransferase 15 U/L (7-40); Albumin 3.4 g/dL (3.2-4.8); Alkaline Phosphatase 59 U/L (46-116); Anion Gap 12 (5-15); BUN/Creatinine Ratio 9.3 (10.0-20.0); Calcium 9.1 mg/dL (8.7-10.4); Carbon Dioxide 23 mmol/L (20-31); Glucose 103 mg/dL (74-106); Magnesium 1.7 mg/dL (1.6-2.6); Sodium 143 mmol/L (136-145); Triglycerides 95 mg/dL (< 150)
[2025-03-28 07:03] LABS: Bilirubin, Total 0.3 mg/dL (0.2-1.0)
[2025-03-28 07:12] LABS: Blood Urea Nitrogen 9 mg/dL (9-23); Chloride 108 mmol/L (98-107); Potassium 3.3 mmol/L (3.5-5.1); Total Protein 5.2 g/dL (5.7-8.2)
--- NOTE | 2025-03-28 11:48 | DVHPN2 ---
Progress Note - Surgical Date Seen: Mar 28, 2025 Post op day Post op day: 0 Subjective Patient reports: Feels better (No complaints, tolerated ice chips and sips of water) Review of Systems: Deferred Objective Vital signs Vital Sign Date Time Temp Pulse Resp B/P (MAP) Pulse Ox O2 Delivery O2 Flow Rate FiO2 03/28/25 09:00 98.0 66 17 131/68 (89) 93 98.0 03/28/25 08:00 Room Air* 0 21 Total Intake and Output 03/27/25 03/27/25 03/28/25 15:00 23:00 07:00 Intake Total 325 ml 400 ml 972 ml Balance 325 ml 400 ml 972 ml Medications Current Medications Medications Dose Ordered Sig/Oz Route Start Time Stop Time Status Last Admin Dose Admin Sodium Chloride 1,000 ml @ 60 mls/hr [id number] IV 03/22/25 10:30 03/27/25 08:59 60 MLS/HR Ondansetron HCl 4 mg Q4HP PRN IV 03/22/25 10:30 03/27/25 14:51 4 MG Acetaminophen 650 mg Q6HP PRN PO 03/22/25 10:30 03/28/25 02:07 650 MG Nitroglycerin 0.4 mg Q5MINP PRN SL 03/22/25 11:45 Morphine Sulfate 1 mg Q4HP PRN IV 03/23/25 11:00 Pantoprazole Sodium 40 mg DAILY IV 03/24/25 10:00 03/28/25 10:12 40 MG Amino Acids 0 ml @ 0 mls/hr PER PHARMACY IV 03/23/25 19:15 Amino Acids/ Electrolytes/ Dextrose 1,000 ml @ 42 mls/hr DAILY@2200 IV 03/23/25 22:00 03/27/25 21:46 42 MLS/HR Hydralazine HCl 10 mg Q6HP PRN IV 03/24/25 10:30 03/25/25 16:26 10 MG Piperacillin Sod/ Tazobactam Sod 100 ml @ 25 mls/hr Q8H IV 03/24/25 18:00 03/28/25 10:12 25 MLS/HR Diagnostic Test (Pha) 1 strip Q6HR 03/27/25 18:00 03/28/25 11:45 1 STRIP Insulin Human Regular FOLLOW SLIDING SCALE Q6HR SC 12/26/25 18:00 03/27/25 23:49 4 UNITS Dextrose 50 ml UD IV 03/27/25 13:30 Insulin Glargine 10 units HS SC 03/27/25 22:00 03/27/25 21:59 10 UNITS Morphine Sulfate 2 mg Q30M PRN IV 03/27/25 16:45 Laboratory Laboratory Tests 03/28/25 06:13 03/26/25 05:21 Test 03/28/25 06:13 Range/Units Serum Glucose 103 74-106 mg/dL Examination: GENERAL:Normal (AAO x3), LUNGS:Normal (Nonlabored breathing with symmetric expansion), ABDOMEN:Normal (Nondistended, soft, depressible, nontender) Labs and/or images reviewed: Labs reviewed by me (No leukocytosis) Problem List/Assessment/Plan Assessment and Plan Mrs. Feliciano is a 79-year-old female who presented on March 21 with abdominal pain, pain has been present for 2-3 days prior to admission, CT showed large amounts of free intraperitoneal air. Patient opted for nonoperative management and given that she was not septic on presentation this dionicio was pursued. She had a repeat CT with p.o. contrast on March 24 which does not show any extravasation, but contrast had not reached the colon. Interval: Patient tolerated ice chips and sips of water. We will advance her today to clear liquid diet. 1. Clear liquid diet 2. Continue Zosyn 3. Out of bed and ambulate 4. Continue TPN 5. Pending transfer My Orders My Orders Orders - MAYRA STONE MD Procedure Category Date Status Time * Bench Mechanic CONS 03/27/25 Transmitted Consult Clear Liq Diet DIET 03/28/25 Transmitted Lunch Plan discussed with Plan discussed with: Patient Visit Coding Surgery Date of Service if different f: Mar 28, 2025 Billing Provider: MAYRA STONE MD Surgery Visit Codes: [id number] INP/OBS CARE(HIGH) MAYRA STONE MD Mar 28, 2025 11:48
--- NOTE | 2025-03-28 11:51 | DVHPN2 ---
Subjective Patient denies any abdominal pain today. Reports having multiple loose stools yesterday. Reviewed: Care Plan, H&P, Labs, Medications Changes from previous H/P or p: No Changes Eyes: No Pain, No Vision change, No Conjunctivae inflammation, No Eyelid inflammation, No Other, No Redness ENT: No Ear pain, No Ear discharge, No Nose pain, No Nose discharge, No Nose congestion, No Mouth pain, No Mouth swelling, No Throat pain, No Throat swelling, No Other Cardiovascular: No Chest Pain, No Palpitations, No Orthopnea, No Paroxysmal Noc. Dyspnea, No Edema, No Lt Headedness, No Other Respiratory: No Cough, No Dry; Shortness of breath; No SOB with excertion, No Wheezing, No Hemoptysis, No Pleuritic Pain, No Sputum, No Other Gastrointestinal: No Nausea, No Vomiting; Abdominal Pain; No Diarrhea, No Constipation, No Melena, No Hematochezia, No Other Genitourinary: No Dysuria, No Frequency, No Incontinence, No Hematuria, No Retention, No Other Musculoskeletal: No other, No neck pain, No shoulder pain, No arm pain, No back pain, No hand pain, No leg pain, No foot pain Skin: No Rash, No Lesions, No Jaundice, No Bruising, No Other Objective Vitals Vital Signs Date Time Temp Pulse Resp B/P (MAP) Pulse Ox O2 Delivery O2 Flow Rate FiO2 03/28/25 09:00 98.0 66 17 131/68 (89) 93 98.0 03/28/25 08:00 Room Air* 0 21 Intake/Output Intake and Output 03/28/25 07:00 Intake Total 1697 ml Balance 1697 ml Intake Oral 418 ml IV Total 1279 ml # Voids 10 # Bowel Movements 2 General Appearance: Alert, Oriented X3, Cooperative, No acute distress HEENT: PERRLA Lungs: Clear to auscultation, Normal air movement Cardiovascular: Regular rate, Normal S1, Normal S2, No murmurs Abdomen: Normal bowel sounds, Soft, No tenderness Skin: Dry, Intact Psych/Mental Status: Mental status NL, Mood NL Medications Current Medications Medications Dose Ordered Sig/Oz Route Start Time Stop Time Status Last Admin Dose Admin Sodium Chloride 1,000 ml @ 60 mls/hr [id number] IV 03/22/25 10:30 03/27/25 08:59 60 MLS/HR Ondansetron HCl 4 mg Q4HP PRN IV 03/22/25 10:30 03/27/25 14:51 4 MG Acetaminophen 650 mg Q6HP PRN PO 03/22/25 10:30 03/28/25 02:07 650 MG Nitroglycerin 0.4 mg Q5MINP PRN SL 03/22/25 11:45 Morphine Sulfate 1 mg Q4HP PRN IV 03/23/25 11:00 Pantoprazole Sodium 40 mg DAILY IV 03/24/25 10:00 03/28/25 10:12 40 MG Amino Acids 0 ml @ 0 mls/hr PER PHARMACY IV 03/23/25 19:15 Amino Acids/ Electrolytes/ Dextrose 1,000 ml @ 42 mls/hr DAILY@2200 IV 03/23/25 22:00 03/27/25 21:46 42 MLS/HR Hydralazine HCl 10 mg Q6HP PRN IV 03/24/25 10:30 03/25/25 16:26 10 MG Piperacillin Sod/ Tazobactam Sod 100 ml @ 25 mls/hr Q8H IV 03/24/25 18:00 03/28/25 10:12 25 MLS/HR Diagnostic Test (Pha) 1 strip Q6HR 03/27/25 18:00 03/28/25 11:45 1 STRIP Insulin Human Regular FOLLOW SLIDING SCALE Q6HR SC 03/27/25 18:00 03/27/25 23:49 4 UNITS Dextrose 50 ml UD IV 03/27/25 13:30 Insulin Glargine 10 units HS SC 03/27/25 22:00 03/27/25 21:59 10 UNITS Morphine Sulfate 2 mg Q30M PRN IV 03/27/25 16:45 Laboratory Results Laboratory Tests 03/26/25 05:21 03/28/25 06:13 Chemistry Test 03/28/25 06:13 Albumin 3.4 g/dL (3.2-4.8) Calcium Level 9.1 mg/dL (8.7-10.4) Magnesium Level 1.7 mg/dL (1.6-2.6) Phosphorus Level 3.1 mg/dL (2.4-5.1) Total Protein 5.2 g/dL (5.7-8.2) L Lipid panel Test 03/28/25 06:13 Triglycerides Level 95 mg/dL (< 150) LFT Test 03/28/25 06:13 Alanine Aminotransferase (ALT) 15 U/L (7-40) Alkaline Phosphatase 59 U/L (46-116) Aspartate Amino Transferase (AST) 19 U/L (13-40) Total Bilirubin 0.3 mg/dL (0.2-1.0) Urinalysis Test 03/22/25 09:55 Urine Color Colorless (Yellow) Urine Clarity Clear (Clear) Urine pH 5.5 (5.0-9.0) Urine Specific [place] 1.007 (1.001-1.035) Urine Protein Negative (Negative) Urine Ketones Negative (Negative) Urine Blood Negative /uL (Negative) Urine Nitrite Negative (Negative) Urine Bilirubin Negative (Negative) Urine Urobilinogen Normal mg/dL (Negative) Urine Leukocyte Esterase Negative /uL (Negative) Urine RBC <1 /hpf (0 - 4) Urine Microscopic WBC 1 /HPF (0-5) Urine Squamous Epithelial Cells Few /hpf (<5) Urine Bacteria Few /hpf (None Seen) H Urine Glucose Normal mg/dL (Normal) Labs and/or images reviewed: Labs reviewed by me, Image(s) reviewed by me Assessment/Plan Assessment/Plan Impression: -bowel perforation with pneumoperitoneum -diabetes mellitus, uncontrolled blood sugars -primary hypertension -acute kidney injury, vasomotor nephropathy -obesity -coronary artery disease -chronic systolic heart failure Plan: -events: Patient has had multiple loose stools. No abdominal pain. -KUB to assess clearance of p.o. contrast -surgical consultation: Advanced to clear liquid diet -CT of abdomen and pelvis with oral contrast is without extravasation. -antihypertensives -continue Clinimix -electrolyte replacement -pain management -social service consultation for transfer to [facility] . Patient continues to be stable to transfer to [facility] -repeat labs in a.m. Total time spent with patient discussing and formulating plan of care: 35 minutes. This medical document was created using an electronic medical record system with [employer] dictation system. Although this document has been carefully reviewed, there may still be some phonetic and typographical errors. These areas are purely typographical due to imperfections of the software programs, and do not reflect any compromise in the patient's medical care. Plan discussed with: Patient, Other (RN) My Orders Orders - NADER MCFADDEN NP Procedure Category Date Status Time Insulin Lantus PHA 03/27/25 In Process (Glargine) (Lantus) 22:00 * Paper Spooler CONS 03/27/25 Transmitted Consult Potassium Chloride PHA 03/28/25 In Process (Potassium Chloride). 11:15 Kub Abdomen Single XY 03/28/25 Logged View 11:07 Date of Service: Mar 28, 2025 Billing Provider: NADER MCFADDEN NP Common Visit Codes: [id number] INP/OBS CARE(HIGH) NADER MCFADDEN NP Mar 28, 2025 11:51
[2025-03-28] MEDS: POTASSIUM CHLORIDE 20 MEQ, LIDOCAINE 1% (LOCAL ANESTH.) 2 ML in SODIUM CHL 0.9% 100 ML IV ONE (13:00)
--- NOTE | 2025-03-28 17:26 | DVH ---
KUB INDICATION: assess transition of contrast FINDINGS: No enteric contrast is noted within the small bowel. The small bowel is dilated measuring up to 4.7 cm. IMPRESSION: No enteric contrast is identified. Dilated small bowel loops within the upper abdomen. Ileus versus partial obstruction. Correlate clinically.
[2025-03-29] VITALS (10 sets, daily range): BP systolic 142–161; BP diastolic 48–69; PULSE 49–82; RESP 17–20; TEMP 97.4–98.2; O2SAT 95–98
[2025-03-29 08:14] LABS: Alanine Aminotransferase 14 U/L (7-40); Albumin 3.4 g/dL (3.2-4.8); Alkaline Phosphatase 63 U/L (46-116); Anion Gap 10 (5-15); BUN/Creatinine Ratio 9.0 (10.0-20.0); Bilirubin, Total 0.4 mg/dL (0.2-1.0); Calcium 9.2 mg/dL (8.7-10.4); Carbon Dioxide 25 mmol/L (20-31); Sodium 143 mmol/L (136-145)
[2025-03-29 08:21] LABS: Chloride 108 mmol/L (98-107); Glucose 122 mg/dL (74-106); Potassium 3.4 mmol/L (3.5-5.1)
[2025-03-29 08:22] LABS: Blood Urea Nitrogen 8 mg/dL (9-23); Magnesium 1.5 mg/dL (1.6-2.6); Total Protein 5.4 g/dL (5.7-8.2)
[2025-03-29 08:27] LABS: Hematocrit 38.4 % (36.0-46.0); Hemoglobin 12.5 g/dL (12.2-16.2); Mean Corpuscular Hemoglobin 30.5 pg (28.0-32.0); Mean Corpuscular Volume 93.3 fL (80.0-100.0); Nucleated Red Blood Cells % 0.1 %
[2025-03-29] MEDS ORDERED: POTASSIUM CHLORIDE 20 MEQ, LIDOCAINE 1% (LOCAL ANESTH.) 2 ML in SODIUM CHL 0.9% 100 ML IV ONE (09:30)
[2025-03-29] MEDS: MAGNESIUM SULFATE 1GM/100ML 100 ML IV SCH (10:55)
[2025-03-29] MEDS: POTASSIUM EFFERVESENT TAB 25 MEQ PO ONE (10:55)
--- NOTE | 2025-03-29 11:04 | DVHPN2 ---
Subjective Patient denies any symptoms Reviewed: Care Plan, H&P, Labs, Medications Changes from previous H/P or p: No Changes Eyes: No Pain, No Vision change, No Conjunctivae inflammation, No Eyelid inflammation, No Other, No Redness ENT: No Ear pain, No Ear discharge, No Nose pain, No Nose discharge, No Nose congestion, No Mouth pain, No Mouth swelling, No Throat pain, No Throat swelling, No Other Cardiovascular: No Chest Pain, No Palpitations, No Orthopnea, No Paroxysmal Noc. Dyspnea, No Edema, No Lt Headedness, No Other Respiratory: No Cough, No Dry; Shortness of breath; No SOB with excertion, No Wheezing, No Hemoptysis, No Pleuritic Pain, No Sputum, No Other Gastrointestinal: No Nausea, No Vomiting; Abdominal Pain; No Diarrhea, No Constipation, No Melena, No Hematochezia, No Other Genitourinary: No Dysuria, No Frequency, No Incontinence, No Hematuria, No Retention, No Other Musculoskeletal: No other, No neck pain, No shoulder pain, No arm pain, No back pain, No hand pain, No leg pain, No foot pain Skin: No Rash, No Lesions, No Jaundice, No Bruising, No Other Objective Vitals Vital Signs Date Time Temp Pulse Resp B/P (MAP) Pulse Ox O2 Delivery O2 Flow Rate FiO2 03/29/25 08:45 98.2 55 20 142/48 (79) 97 98.2 03/29/25 08:00 Room Air* 0 21 Intake/Output Intake and Output 03/29/25 07:00 Intake Total 1511 ml Balance 1511 ml Intake Oral 975 ml IV Total 536 ml # Voids 7 # Bowel Movements 5 General Appearance: Alert, Oriented X3, Cooperative, No acute distress HEENT: PERRLA Lungs: Clear to auscultation, Normal air movement Cardiovascular: Regular rate, Normal S1, Normal S2, No murmurs Abdomen: Normal bowel sounds, Soft, No tenderness Skin: Dry, Intact Psych/Mental Status: Mental status NL, Mood NL Medications Current Medications Medications Dose Ordered Sig/Oz Route Start Time Stop Time Status Last Admin Dose Admin Sodium Chloride 1,000 ml @ 60 mls/hr [id number] IV 03/22/25 10:30 03/27/25 08:59 60 MLS/HR Ondansetron HCl 4 mg Q4HP PRN IV 03/22/25 10:30 03/27/25 14:51 4 MG Acetaminophen 650 mg Q6HP PRN PO 03/22/25 10:30 03/29/25 08:22 650 MG Nitroglycerin 0.4 mg Q5MINP PRN SL 03/22/25 11:45 Morphine Sulfate 1 mg Q4HP PRN IV 03/23/25 11:00 Pantoprazole Sodium 40 mg DAILY IV 03/24/25 10:00 03/29/25 09:56 40 MG Amino Acids 0 ml @ 0 mls/hr PER PHARMACY IV 03/23/25 19:15 Amino Acids/ Electrolytes/ Dextrose 1,000 ml @ 42 mls/hr DAILY@2200 IV 03/23/25 22:00 03/28/25 22:46 42 MLS/HR Hydralazine HCl 10 mg Q6HP PRN IV 03/24/25 10:30 03/28/25 17:55 10 MG Piperacillin Sod/ Tazobactam Sod 100 ml @ 25 mls/hr Q8H IV 03/24/25 18:00 03/29/25 09:56 25 MLS/HR Diagnostic Test (Pha) 1 strip Q6HR 03/27/25 18:00 03/29/25 05:51 1 STRIP Insulin Human Regular FOLLOW SLIDING SCALE Q6HR SC 03/27/25 18:00 03/29/25 05:52 2 UNITS Dextrose 50 ml UD IV 03/27/25 13:30 Insulin Glargine 10 units HS SC 03/27/25 22:00 03/28/25 22:49 10 UNITS Morphine Sulfate 2 mg Q30M PRN IV 03/27/25 16:45 Magnesium Sulfate/ Dextrose 100 ml @ 100 mls/hr Q1HR IV 03/29/25 10:00 03/29/25 11:59 03/29/25 10:55 100 MLS/HR Laboratory Results Laboratory Tests 03/29/25 06:25 03/29/25 06:55 Chemistry Test 03/29/25 06:25 Albumin 3.4 g/dL (3.2-4.8) Calcium Level 9.2 mg/dL (8.7-10.4) Magnesium Level 1.5 mg/dL (1.6-2.6) L Phosphorus Level 2.2 mg/dL (2.4-5.1) L Total Protein 5.4 g/dL (5.7-8.2) L LFT Test 03/29/25 06:25 Alanine Aminotransferase (ALT) 14 U/L (7-40) Alkaline Phosphatase 63 U/L (46-116) Aspartate Amino Transferase (AST) 17 U/L (13-40) Total Bilirubin 0.4 mg/dL (0.2-1.0) Urinalysis Test 03/22/25 09:55 Urine Color Colorless (Yellow) Urine Clarity Clear (Clear) Urine pH 5.5 (5.0-9.0) Urine Specific [place] 1.007 (1.001-1.035) Urine Protein Negative (Negative) Urine Ketones Negative (Negative) Urine Blood Negative /uL (Negative) Urine Nitrite Negative (Negative) Urine Bilirubin Negative (Negative) Urine Urobilinogen Normal mg/dL (Negative) Urine Leukocyte Esterase Negative /uL (Negative) Urine RBC <1 /hpf (0 - 4) Urine Microscopic WBC 1 /HPF (0-5) Urine Squamous Epithelial Cells Few /hpf (<5) Urine Bacteria Few /hpf (None Seen) H Urine Glucose Normal mg/dL (Normal) Labs and/or images reviewed: Labs reviewed by me, Image(s) reviewed by me Assessment/Plan Assessment/Plan Impression: -bowel perforation with pneumoperitoneum -diabetes mellitus, uncontrolled blood sugars -primary hypertension -acute kidney injury, vasomotor nephropathy -obesity -coronary artery disease -chronic systolic heart failure Plan: -events: Request was made by accepting facility surgeon to repeat CT scan. Patient had repeat KUB with no contrast appreciated on scan. Patient has had multiple bowel movements. She is tolerating clear liquids now. She no longer complains of abdominal pain. -KUB assessed with no further contrast in bowels. -surgical consultation: Advanced to clear liquid diet -antihypertensives -discontinue Clinimix -electrolyte replacement -pain management -social service consultation for transfer to [facility] . Patient continues to be stable to transfer to [facility] -repeat labs in a.m. Total time spent with patient discussing and formulating plan of care: 35 minutes. This medical document was created using an electronic medical record system with [employer] dictation system. Although this document has been carefully reviewed, there may still be some phonetic and typographical errors. These areas are purely typographical due to imperfections of the software programs, and do not reflect any compromise in the patient's medical care. Plan discussed with: Patient, Other (RN) My Orders Orders - NADER MCFADDEN NP Procedure Category Date Status Time Kub Abdomen Single XY 03/28/25 Resulted View 11:07 Magnesium Sulfate PHA 03/29/25 In Process 1gm/100ml 10:00 * Joint Cutter Machine CONS 03/29/25 Transmitted Consult Date of Service: Mar 29, 2025 Billing Provider: NADER MCFADDEN NP Common Visit Codes: [id number] INP/OBS CARE(HIGH) NADER MCFADDEN NP Mar 29, 2025 11:04
[2025-03-29] MEDS ORDERED: DEXTROSE (50%) 50ML SYRG IV PRN (11:45)
[2025-03-29] MEDS: InsuLIN REG 1unit/0.01ml Soln (100units/ml) SC SCH (12:00)
[2025-03-29] MEDS: ACCU-CHEK COMFORT CURVE STRIP VI SCH (12:00)
--- NOTE | 2025-03-29 13:00 | DVHPN2 ---
Progress Note - Surgical Date Seen: Mar 29, 2025 Post op day Post op day: 0 Subjective Patient reports: No new complaints Review of Systems: Deferred Objective Vital signs Vital Sign Date Time Temp Pulse Resp B/P (MAP) Pulse Ox O2 Delivery O2 Flow Rate FiO2 03/29/25 08:45 98.2 55 20 142/48 (79) 97 98.2 03/29/25 08:00 Room Air* 0 21 Total Intake and Output 03/28/25 03/28/25 03/29/25 15:00 23:00 07:00 Intake Total 826 ml 685 ml Balance 826 ml 685 ml Medications Current Medications Medications Dose Ordered Sig/Oz Route Start Time Stop Time Status Last Admin Dose Admin Sodium Chloride 1,000 ml @ 60 mls/hr [id number] IV 03/22/25 10:30 03/27/25 08:59 60 MLS/HR Ondansetron HCl 4 mg Q4HP PRN IV 03/22/25 10:30 03/27/25 14:51 4 MG Acetaminophen 650 mg Q6HP PRN PO 03/22/25 10:30 03/29/25 08:22 650 MG Nitroglycerin 0.4 mg Q5MINP PRN SL 03/22/25 11:45 Morphine Sulfate 1 mg Q4HP PRN IV 03/23/25 11:00 Pantoprazole Sodium 40 mg DAILY IV 03/24/25 10:00 03/29/25 09:56 40 MG Hydralazine HCl 10 mg Q6HP PRN IV 03/24/25 10:30 03/28/25 17:55 10 MG Piperacillin Sod/ Tazobactam Sod 100 ml @ 25 mls/hr Q8H IV 03/24/25 18:00 03/29/25 09:56 25 MLS/HR Insulin Glargine 10 units HS SC 03/27/25 22:00 03/28/25 22:49 10 UNITS Morphine Sulfate 2 mg Q30M PRN IV 03/27/25 16:45 Diagnostic Test (Pha) 1 strip Q6HR 03/29/25 12:00 Insulin Human Regular Q6HR SC 03/29/25 12:00 Dextrose 50 ml UD PRN IV 03/29/25 11:45 Laboratory Laboratory Tests 03/29/25 06:55 03/29/25 06:25 Test 03/29/25 06:25 Range/Units Serum Glucose 122 H 74-106 mg/dL Examination: GENERAL:Normal (AAO x3), ABDOMEN:Normal (Nondistended, soft, depressible, nontender) Labs and/or images reviewed: Labs reviewed by me (No leukocytosis) Problem List/Assessment/Plan Assessment and Plan Mrs. Feliciano is a 79-year-old female who presented on March 21 with abdominal pain, pain has been present for 2-3 days prior to admission, CT showed large amounts of free intraperitoneal air. Patient opted for nonoperative management and given that she was not septic on presentation this dionicio was pursued. She had a repeat CT with p.o. contrast on March 24 which does not show any extravasation, but contrast had not reached the colon. Interval: Patient tolerated clear liquid diet, continues to have bowel movements (5 in last 24 hours). We will advance diet to full liquid diet 1. Advanced to full liquid diet 2. Continue Zosyn 3. Out of bed and ambulate 4. Continue TPN Plan discussed with Plan discussed with: Patient Visit Coding Surgery Date of Service if different f: Mar 29, 2025 Billing Provider: MAYRA STONE MD Surgery Visit Codes: [id number] INP/OBS CARE(HIGH) MAYRA STONE MD Mar 29, 2025 13:00
--- NOTE | 2025-03-29 15:55 | DVH ---
EXAM DESCRIPTION: CT CT AB PEL WO CON-NO ORAL OR IV CLINICAL HISTORY: pneumoperitoneum COMPARISON: CT CT AB PEL WITH ORAL CON ONLY on DOS: 03/24/25, CT CT AB PEL WO CON-NO ORAL OR IV on DOS: 03/21/25 TECHNIQUE: CT abdomen and pelvis without IV contrast was performed. Coronal and sagittal MPR images were generated.CTDI/ DLP = / Dose reduction technique with one or more of the following methods was performed: Automated exposure control, adjustment of the mA and/or kV according to patient size, use of iterative reconstruction technique FINDINGS: Lower chest: A couple pulmonary nodules in the right lung base measuring up to 5 mm. Multivessel coronary artery disease. Liver: Unchanged 7.9 x 6.0 cm heterogeneous mass in the right hepatic lobe. . Biliary: Status post cholecystectomy. No biliary ductal dilatation. Pancreas: No fat stranding or focal lesion. Spleen: Normal in size.. Adrenal glands: No nodularity. Kidneys: No nephrolithiasis. No hydroureteronephrosis. . Bladder: Underdistended, limiting evaluation. Reproductive organs: Stable 7 cm cystic lesion in the right adnexa. Bowel: Mildly dilated small bowel with air fluid levels, relatively decreased from the prior study. Normal appendix.. Peritoneum: No free fluid. Large volume pneumoperitoneum, not significantly changed. Vessels: Normal caliber abdominal aorta. Severe atherosclerotic calcifications.. Lymph nodes: No suspicious lymph nodes. Soft tissues: Unremarkable. . Osseous structures: No acute fracture or subluxation. No suspicious osseous lesions. Degenerative changes of the visualized thoracolumbar spine. IMPRESSION: 1. Large volume pneumoperitoneum, not significantly changed and suspicious for bowel perforation. 2. Mildly dilated small bowel loops with air fluid levels, decreased from prior and likely representing ileus. 3. Stable 7.9 cm heterogeneous mass in the right hepatic lobe. Recommend further evaluation with MRI abdomen with IV contrast. 4. Stable 7 cm cystic lesion in the right adnexa. Recommend further evaluation pelvic ultrasound. 5. A couple pulmonary nodules in the right lung base measuring up to 5 mm. If the patient is high risk for lung cancer, consider follow-up chest CT in 12 months 6. Coronary artery disease. Severe atherosclerotic vascular disease.
[2025-03-30] VITALS (8 sets, daily range): BP systolic 130–165; BP diastolic 53–86; PULSE 49–98; RESP 16–18; TEMP 97.5–97.9; O2SAT 96–97
--- NOTE | 2025-03-30 10:29 | DVHPN2 ---
Progress Note Date Seen: Mar 30, 2025 Medical Necessity Reason Pt with a Central, PICC or Fol: No Subjective Patient reports: No new complaints Review of Systems: HEENT:Normal, CVS:Normal, RESPIRATORY:Normal, GI:Normal, :Normal, MSK:Normal, NEURO:Normal Objective vital signs Vital Sign Date Time Temp Pulse Resp B/P (MAP) Pulse Ox O2 Delivery O2 Flow Rate FiO2 03/30/25 09:00 97.6 59 18 159/77 (104) 97 97.6 03/29/25 08:00 Room Air* 0 21 Total Intake and Output 03/29/25 03/29/25 03/30/25 15:00 23:00 07:00 Intake Total 200 ml 500 ml 300 ml Balance 200 ml 500 ml 300 ml medications Current Medications Medications Dose Ordered Sig/Oz Route Start Time Stop Time Status Last Admin Dose Admin Sodium Chloride 1,000 ml @ 60 mls/hr [id number] IV 03/22/25 10:30 03/27/25 08:59 60 MLS/HR Ondansetron HCl 4 mg Q4HP PRN IV 03/22/25 10:30 03/27/25 14:51 4 MG Acetaminophen 650 mg Q6HP PRN PO 03/22/25 10:30 03/29/25 14:16 650 MG Nitroglycerin 0.4 mg Q5MINP PRN SL 03/22/25 11:45 Morphine Sulfate 1 mg Q4HP PRN IV 03/23/25 11:00 Pantoprazole Sodium 40 mg DAILY IV 03/24/25 10:00 03/30/25 09:55 40 MG Hydralazine HCl 10 mg Q6HP PRN IV 03/24/25 10:30 03/28/25 17:55 10 MG Piperacillin Sod/ Tazobactam Sod 100 ml @ 25 mls/hr Q8H IV 03/24/25 18:00 03/30/25 09:55 25 MLS/HR Insulin Glargine 10 units HS SC 03/27/25 22:00 03/29/25 21:41 10 UNITS Morphine Sulfate 2 mg Q30M PRN IV 03/27/25 16:45 Diagnostic Test (Pha) 1 strip Q6HR 03/29/25 12:00 03/30/25 06:00 1 STRIP Insulin Human Regular Q6HR SC 03/29/25 12:00 03/30/25 05:49 2 UNITS Dextrose 50 ml UD PRN IV 03/29/25 11:45 Examination: GENERAL:Normal, HEENT:Normal, NECK:Normal, LUNGS:Normal, CVS:Normal, ABDOMEN:Normal, MSK:Normal, SKIN:Normal, NEURO:Normal, :Normal laboratory and microbiology Laboratory Tests 03/29/25 06:55 03/29/25 06:25 Test 03/29/25 06:25 Range/Units Serum Glucose 122 H 74-106 mg/dL Problem List/Assessment/Plan Problem List/Assessment/Plan #1 free air likely bowel perforation: full liquid diet, iv antibiotics #2 dm: ssi #3 htn #4 acute renal failure ?vasomotor nephropathy #5 morbid obesity #6 cad/chronic systolic heart failure #7 s/p open marquis #8 right liver mass: needs mri #9 right adnexal cyst STABLE FOR TRANSFER advance care planning- full code- time spent 19 mins Plan discussed with: Patient My Orders My Orders Orders - DAX FIGUEROA MD Procedure Category Date Status Time * Healthcare Risk Control Consultant CONS 03/30/25 Verified Consult Pt Request For Service PT 03/30/25 Verified 10:24 Basic Metabolic Panel LAB 03/31/25 Verified 06:00 Complete Blood Count LAB 03/31/25 Verified 06:00 Dietary Evaluation Review Comments: Nutrition Recommendation: 1) Consider TPN if NPO >7 days 2) Monitor NPO status, lab values, weight trend, and I/O Expected Outcomes/Goals: GI symptoms to improve Intake to meet >75% estimated needs FU 2-3 days Date of Service: Mar 30, 2025 Billing Provider: DAX FIGUEROA MD Common Visit Codes: [id number] INP/OBS CARE(HIGH) DAX FIGUEROA MD Mar 30, 2025 10:29
[2025-03-30] MEDS: IOHEXOL 300 MG/ML 100ML BOTTLE IJ ONE (10:30)
[2025-03-30] MEDS: OMNIPAQUE 12mg/ml 500ml ORAL SOLUTION PO ONE (10:30)
--- NOTE | 2025-03-30 14:38 | DVHPN2 ---
Progress Note - Surgical Date Seen: Mar 30, 2025 Post op day Post op day: 0 Subjective Patient reports: Feels better Review of Systems: Deferred Objective Vital signs Vital Sign Date Time Temp Pulse Resp B/P (MAP) Pulse Ox O2 Delivery O2 Flow Rate FiO2 03/30/25 12:35 97.9 59 16 165/86 (112) 97 97.9 03/30/25 08:30 Room Air* 0 21 Total Intake and Output 03/29/25 03/29/25 03/30/25 15:00 23:00 07:00 Intake Total 200 ml 500 ml 300 ml Balance 200 ml 500 ml 300 ml Medications Current Medications Medications Dose Ordered Sig/Oz Route Start Time Stop Time Status Last Admin Dose Admin Sodium Chloride 1,000 ml @ 60 mls/hr [id number] IV 03/22/25 10:30 03/27/25 08:59 60 MLS/HR Ondansetron HCl 4 mg Q4HP PRN IV 03/22/25 10:30 03/27/25 14:51 4 MG Acetaminophen 650 mg Q6HP PRN PO 03/22/25 10:30 03/30/25 11:06 650 MG Nitroglycerin 0.4 mg Q5MINP PRN SL 03/22/25 11:45 Morphine Sulfate 1 mg Q4HP PRN IV 03/23/25 11:00 Pantoprazole Sodium 40 mg DAILY IV 03/24/25 10:00 03/30/25 09:55 40 MG Hydralazine HCl 10 mg Q6HP PRN IV 03/24/25 10:30 03/30/25 11:38 10 MG Piperacillin Sod/ Tazobactam Sod 100 ml @ 25 mls/hr Q8H IV 03/24/25 18:00 03/30/25 09:55 25 MLS/HR Insulin Glargine 10 units HS SC 03/27/25 22:00 03/29/25 21:41 10 UNITS Morphine Sulfate 2 mg Q30M PRN IV 03/27/25 16:45 Diagnostic Test (Pha) 1 strip Q6HR 03/29/25 12:00 03/30/25 11:08 1 STRIP Insulin Human Regular Q6HR SC 03/29/25 12:00 03/30/25 11:30 3 UNITS Dextrose 50 ml UD PRN IV 03/29/25 11:45 Laboratory Laboratory Tests 12/28/25 06:55 03/29/25 06:25 Test 03/29/25 06:25 Range/Units Serum Glucose 122 H 74-106 mg/dL Examination: ABDOMEN:Normal (Large pannus, soft, depressible, nontender) Labs and/or images reviewed: Labs reviewed by me (No leukocytosis), Image(s) reviewed by me Problem List/Assessment/Plan Assessment and Plan Mrs. Feliciano is a 79-year-old female who presented on March 21 with abdominal pain, pain has been present for 2-3 days prior to admission, CT showed large amounts of free intraperitoneal air. Patient opted for nonoperative management and given that she was not septic on presentation this dionicio was pursued. She had a repeat CT with p.o. contrast on March 24 which does not show any extravasation, but contrast had not reached the colon. Interval: CT from yesterday show some residual pneumoperitoneum. Patient tolerated full liquid diet. Continue advance diet as tolerated, cleared for discharge per surgical standpoint. 1. Continue to advance diet as tolerated 2. Cleared for discharge per surgical standpoint 3. Out of bed and ambulate 4. I will sign off, please call with any questions or concerns Plan discussed with Plan discussed with: Patient Visit Coding Surgery Date of Service if different f: Mar 30, 2025 Billing Provider: MAYRA STONE MD Surgery Visit Codes: [id number] INP/OBS CARE(HIGH) MAYRA STONE MD Mar 30, 2025 14:38
== END 2025-03-30 19:47 | disposition short-term general hospital (02) | DRG 393 ==
LOC: ER 22:19 → EDBD 22:19 → OVERFLOW 03-22 11:40 → TELE-CENTR 03-22 15:14
PROVIDERS: ADMIT Internal Medicine; ATTEND Internal Medicine
DX: K63.1 Perforation of intestine (nontraumatic) (principal); N17.0 Acute kidney failure with tubular necrosis; K55.9 Vascular disorder of intestine, unspecified; D69.6 Thrombocytopenia, unspecified; I50.22 Chronic systolic (congestive) heart failure; E66.01 Morbid (severe) obesity due to excess calories; I11.0 Hypertensive heart disease with heart failure; E11.65 Type 2 diabetes mellitus with hyperglycemia; E87.1 Hypo-osmolality and hyponatremia; E78.5 Hyperlipidemia, unspecified; I25.10 Atherosclerotic heart disease of native coronary artery without angina pectoris; E87.6 Hypokalemia; I44.7 Left bundle-branch block, unspecified; K59.00 Constipation, unspecified; Z90.49 Acquired absence of other specified parts of digestive tract; Z88.8 Allergy status to other drugs, medicaments and biological substances; Z79.899 Other long term (current) drug therapy; I25.2 Old myocardial infarction; Z83.3 Family history of diabetes mellitus; Z79.4 Long term (current) use of insulin
CPT/HCPCS: 36415; 71045; 74018; 74176; 80048; 80053; 80061; 80069; 81001; 82962; 83036; 83605; 83690; 83735; 83880; 84100; 84443; 84478; 85025; 85610; 85730; 93005; 93306; 97163; 99291; G0378; J0131; J1815; J2003; J2405; J2470; J2543; J3480; J3490